=== PATIENT | male | born 1990 | race Caucasian/White ===

== ENCOUNTER 2016-10-24 02:48 | Emergency (ER) | payer OTHER ==
[~2016-10-24] VITALS: Ht 177.8 cm; Wt 56.8 kg
[2016-10-24 02:53] VITALS: TEMP 36.4; Ht 177.8 cm; Wt 56.8 kg
[2016-10-24 03:29] LABS: HEMATOCRIT 47.4 % (42-52); MEAN CELL VOLUME 88.1 fL (80-100); MEAN CORPUSCULAR HEMOGLOBIN 29.2 pg (25-34); MEAN CORPUSCULAR HGB CONC 33.1 g/dl (32-36); MEAN PLATELET VOLUME 11.3 fL (7.4-10.4); PLATELET COUNT 201 K/uL (130-400); RED BLOOD COUNT 5.38 M/uL (4.7-6.1); WHITE BLOOD COUNT 9.16 K/uL (4.8-10.8)
[2016-10-24 03:35] LABS: URINE APPEARANCE CLEAR (CLEAR); URINE BILIRUBIN NEG (NEG); URINE COLOR DK YELLOW; URINE NITRITE NEG (NEG); URINE SPECIFIC GRAVITY 1.031 (1.000-1.030); UROBILINOGEN NEG (NEG)
--- NOTE | 2016-10-24 03:36 | EMERGENCY ROOM VISIT NOTE ---
History Report prepared by Aileen: Rosa Elena Abdullahi Under the Supervision of: Dr. Zaida Olivares D.O. First contact with patient: 03:11 Chief Complaint: MENTAL HEALTH EVALUATION Stated Complaint: RACING THOUGHTS,SUICIDAL THOUGHTS History of Present Illness The patient is a 26 year old male who presents to the Emergency Room for a mental health evaluation. The patient states that he has a history of depression. He states that he has had a psychotic episode in the past that he attempted suicide by cutting his throat with a knife three years ago. He notes he has been an inpatient before in [place], but never [place]. The patient state that he had racing thoughts tonight and similar suicidal thoughts as his previous psychotic episode with the same plan. He states he came the ED to prevent this episode from becoming that severe. He states that he is on medication to help control his depression, but is inconsistent with it due to stress and an inconsistent schedule. The patient states he did take a Latuda before coming to the ED tonight with little relief. He notes he does see a psychiatrist regularly. The patient denies abdominal pain, leg cramping, leg swelling, drug use, alcohol use, and any other health problems. Source of History: patient Onset: tonight Position: other (global) Symptom Intensity: racing Quality: other (similar to previuos episodes) Timing: other (episode) Associated Symptoms: No abdominal pain Note: The patient denies leg cramping, leg swelling, drug use, alcohol use, and any other health problems Review of Systems See HPI for pertinent positives & negatives. A total of 10 systems reviewed and were otherwise negative. Past Medical & Surgical Medical Problems: (1) History of depression Family History No pertinent family history Social History Smoking Status: Never Smoker Alcohol Use: none Drug Use: none Marital Status: single Housing Status: lives alone Occupation Status: [employer] Current/Historical Medications Scheduled Lurasidone Hcl (Latuda), 80 MG PO HS Sertraline (Zoloft), 200 MG PO QAM Allergies Coded Allergies: No Known Allergies (Unverified , 10/24/16) Physical Exam Vital Signs Date Time Temp Pulse Resp B/P (MAP) Pulse Ox O2 Delivery O2 Flow Rate FiO2 10/24/16 07:01 64 18 128/67 95 Room Air 10/24/16 05:09 93 18 112/83 98 Room Air 10/24/16 02:53 36.4 78 18 153/103 99 Room Air Physical Exam HEENT: Head - normocephalic and atraumatic Pupils are equal, round, and reactive to light. Extraocular eye muscles are intact, and sclera are anicteric. Nose - moist nasal mucosa without discharge. Mouth - moist buccal mucosa. Oropharynx is nonerythematous and there is no tonsillar exudate or edema noted. Neck: Scar noted to the anterior neck. Supple; no cervical lymphadenopathy Heart: Regular rate and rhythm Lungs: Clear to auscultation bilaterally Abdomen: Soft, completely nontender, nondistended, with good bowel sounds. There are no palpable pulsatile masses or hepatosplenomegaly. There is no guarding, rigidity, or rebound noted. Extremities: No evidence of cyanosis, clubbing, or edema. There are easily palpable peripheral pulses. Skin: warm and dry with good turgor and no rashes. Psych: normal affect, admits to suicidal ideation with a plan to cut his neck. Medical Decision & Procedures Laboratory Results 10/24/16 03:16 10/24/16 03:16 Test 10/24/16 03:05 10/24/16 03:16 Urine Color DK YELLOW Urine Appearance CLEAR (CLEAR) Urine pH 6.0 (4.5-7.5) Urine Specific [place] 1.031 (1.000-1.030) Urine Protein NEG (NEG) Urine Glucose (UA) NEG (NEG) Urine Ketones 1+ (NEG) Urine Occult Blood NEG (NEG) Urine Nitrite NEG (NEG) Urine Bilirubin NEG (NEG) Urine Urobilinogen NEG (NEG) Urine Leukocyte Esterase NEG (NEG) Urine Opiates Screen NEG (NEG) Urine Methadone, Qualitative NEG (NEG) Urine Barbiturates NEG (NEG) Urine Phencyclidine (PCP) Level NEG (NEG) Ur Amphetamine/Methamphetamine NEG (NEG) MDMA (Ecstasy) Screen NEG (NEG) Urine Benzodiazepines Screen NEG (NEG) Urine Cocaine Metabolite NEG (NEG) Urine Marijuana (THC) NEG (NEG) Red Blood Count 5.38 M/uL (4.7-6.1) Mean Corpuscular Volume 88.1 fL (80-100) Mean Corpuscular Hemoglobin 29.2 pg (25-34) Mean Corpuscular Hemoglobin Concent 33.1 g/dl (32-36) RDW Standard Deviation 42.0 fL (36.4-46.3) RDW Coefficient of Variation 13.0 % (11.5-14.5) Mean Platelet Volume 11.3 fL (7.4-10.4) Anion Gap 9.0 mmol/L (3-11) Est Creatinine Clear Calc Drug Dose 92.4 ml/min Estimated GFR () 123.0 Estimated GFR (Non- 106.2 BUN/Creatinine Ratio 14.3 (10-20) Calcium Level 9.5 mg/dl (8.5-10.1) Total Bilirubin 0.6 mg/dl (0.2-1) Direct Bilirubin 0.1 mg/dl (0-0.2) Aspartate Amino Transf (AST/SGOT) 11 U/L (15-37) Alanine Aminotransferase (ALT/SGPT) 19 U/L (12-78) Alkaline Phosphatase 88 U/L (45-117) Total Protein 8.1 gm/dl (6.4-8.2) Albumin 4.8 gm/dl (3.4-5.0) Thyroid Stimulating Hormone (TSH) 6.230 uIu/ml (0.300-4.500) Salicylates Level < 1.7 mg/dl (2.8-20) Acetaminophen Level < 2 ug/ml (10-30) Ethyl Alcohol mg/dL < 3.0 mg/dl (0-3) Laboratory results per my review. Medications Administered Medications (Trade) Dose Ordered Sig/Bryan Route Start Time Stop Time Status Last Admin Dose Admin Sertraline HCl (Zoloft Tab) 200 mg NOW STAT PO 10/24/16 06:07 10/24/16 06:08 DC 10/24/16 07:00 200 MG ED Course 0317: Past medical records reviewed. The patient was evaluated in room A6. A complete history and physical exam was performed. Labs were drawn as above. 0506: The patient was felt to be medically cleared. [address] [facility] Staff are evaluating the patient currently. 0551: A bed search is being done for the patient. 0607: Ordered Zoloft Tab 200 mg PO. 0645: The patient will be signed out to Dr. Concepcion as the bed search continues. Medical Decision This is a 26-year-old male patient presents to the emergency department with racing thoughts and suicidal ideation with the plan. Differential diagnoses include mood disorder, medication noncompliance, suicidal ideation, thought disorder. LABS: Normal white count Normal H&H TSH 6.2 LFTS normal Glucose normal Renal function normal Negative alcohol Negative Tylenol Negative Aspirin Urine tox was negative Urinalysis had 1+ ketones The patient has a previous attempt at suicide by lacerating his neck. The patient presents here voluntarily requesting evaluation and inpatient psychiatric care. The patient admits to stopping his medications 2 days ago. He was noted to be hypothyroid. The case will be signed out to Dr. Concepcion at change of shift awaiting bed search. Impression Primary Impression: Suicidal ideation Additional Impressions: Noncompliance with medications Hypothyroidism Scribe Attestation The scribe's documentation has been prepared under my direction and personally reviewed by me in its entirety. I confirm that the note above accurately reflects all work, treatment, procedures, and medical decision making performed by me. Departure Information Dispostion Mental Health Acute Care Referrals No Doctor, Assigned (PCP) Patient Instructions My [facility] Problem Qualifiers
[2016-10-24 03:42] LABS: MANUAL MICROSCOPIC REQUIRED? NO; REVIEW REQ? NO
[2016-10-24] MEDS ORDERED: SERT-234 PO (03:46)
[2016-10-24] MEDS ORDERED: LURA80TA PO (03:46)
[2016-10-24 03:51] LABS: BUN/CREATININE RATIO 14.3 (10-20); CALCIUM 9.5 mg/dl (8.5-10.1); CREATININE 0.99 mg/dl (0.60-1.40); POTASSIUM 3.4 mmol/L (3.5-5.1)
[2016-10-24 03:53] LABS: BENZODIAZEPINE, URINE NEG (NEG); COCAINE,URINE NEG (NEG); PHENCYCLIDINE, URINE NEG (NEG)
[2016-10-24 04:02] LABS: THYROID STIMULATING HORMONE 6.23 uIu/ml (0.300-4.500)
[2016-10-24 04:16] LABS: ACETAMINOPHEN < 2 ug/ml (10-30)
[2016-10-24] MEDS ORDERED: SERTRALINE HCL 100 MG TAB PO STA (06:07)
[2016-10-24 09:50] VITALS: BP 132/55; PULSE 69; O2SAT 99
--- NOTE | 2016-10-24 15:06 | EMERGENCY ROOM VISIT NOTE ---
ED Visit Note First contact with patient: 06:39 26 yr old male arrived overnight for evaluation of worsening depression and suicidal plans. Initially evaluated and medically cleared by Dr Olivares. 201 voluntary admission planned. Accepted to [facility] and transferred there for further evaluation and treatment.
== END 2016-10-24 09:51 ==
LOC: C.EDB 02:50 → C.EDA 09:51
DX: R45.851 Suicidal ideations (principal); Z91.19 Patient's noncompliance with other medical treatment and regimen; F32.9 Major depressive disorder, single episode, unspecified; E03.9 Hypothyroidism, unspecified; Z91.5 Personal history of self-harm; Z79.899 Other long term (current) drug therapy

== ENCOUNTER 2018-10-23 13:51 | Inpatient (IN) ==
[2018-10-23 14:18] LABS: Appearance Urine Clear (Clear); Bilirubin Urine Negative (Negative); Blood Urine Negative (Negative); Color Urine Yellow; Glucose Urine UA Negative (Negative); Ketones Urine Negative (Negative); Leukocyte Esterase Urine Negative (Negative); Nitrite Urine Negative (Negative); Protein Urine Negative (Negative); Specific Gravity Urine 1.017 (1.000-1.030); Urobilinogen Urine Negative (Negative)
[2018-10-23 14:33] LABS: Hematocrit (blood only) 45.9 % (42-52); Hemoglobin 16.4 g/dL (14.0-18.0); Mean Corpuscular Hgb Conc 35.7 g/dL (32-36); Mean Corpuscular Volume 90.5 fL (80-100); Mean Platelet Volume 10.8 fL (7.4-10.4); Platelet Count 188 K/uL (130-400); RDW Coefficient of Variation 12.4 % (11.5-14.5); RDW Standard Deviation 40.9 fL (36.4-46.3); Red Blood Count 5.07 M/uL (4.7-6.1); White Blood Count 7.36 K/uL (4.8-10.8)
[2018-10-23 14:34] LABS: Eosinophils # (auto) 0.03 K/uL (0-0.5); Eosinophils % (auto) 0.4 %; Immature Granulocytes # (auto) 0.01 K/uL (0.00-0.02); Immature Granulocytes % (auto) 0.1 %; Lymphocytes # (auto) 1.23 K/uL (1.2-3.4); Lymphocytes % (auto) 16.7 %; Monocytes # (auto) 0.53 K/uL (0.11-0.59); Monocytes % (auto) 7.2 %; Neutrophils # (auto) 5.56 K/uL (1.4-6.5); Neutrophils % (auto) 75.6 %
[2018-10-23 14:38] LABS: Amphetamines+Metham, Urine Neg (Neg); Barbiturates, Urine Neg (Neg); Benzodiazepine, Urine Neg (Neg); Cocaine, Urine Neg (Neg); MDMA (Ecstacy), Urine Neg (Neg); Methadone, Urine Neg (Neg); Opiate, Urine Neg (Neg); Phencyclidine, Urine Neg (Neg)
[2018-10-23 14:51] LABS: Albumin Level 4.5 gm/dl (3.4-5.0); BUN Creatinine Ratio 11.8 (10-20); Calcium 9.3 mg/dl (8.5-10.1); Creatinine Clr Calc Pharmacy 91.9 ml/min; Potassium 4.1 mmol/L (3.5-5.1)
[2018-10-23 15:00] LABS: Acetaminophen < 2 ug/ml (10-30); Salicylate < 1.7 mg/dl (2.8-20)
[2018-10-23 15:01] LABS: Albumin Globulin Ratio 1.3 (0.9-2); Bilirubin,Total 0.5 mg/dl (0.2-1); Globulin 3.4 gm/dl (2.5-4.0); Total Protein 7.9 gm/dl (6.4-8.2)
--- NOTE | 2018-10-23 16:22 | Emergency Department Note ---
Entered by Nikki Morelos acting as a scribe for History of Present Illness General Chief complaint: Mental Health Evaluation Stated complaint: DEPRESSION, SUICIDAL THOUGHTS Source: patient History of Present Illness Onset (ago): week(s) (couple) Location: head Pain Consistency: + other (episode) Maximum Pain Intensity: 0 Quality: + other (suicidal thoughts, depression) Associated symptoms: + other (-pain; +lethargy; +stress; -urges/impulses; - hallucinations; -wanting to hurt others); no fever/chills and no nausea/vomiting The patient is a 28 year old male who presents to the Emergency Room with complaints of an episode of suicidal thoughts over the last couple weeks. The patient reports he saw a psychiatrist today who referred him to the ED. The patient notes he has bipolar disorder, and he notes he has experienced increased depression and hypomanic episodes recently, which has caused an increase of his Zoloft dosage. The patient also notes he has been on Latuda. The patient states that he "does not want to , but does not feel like living anymore". The patient states he has been stressed recently due to work and school. The patient also states he generally has not been able to get up in the mornings, and he states that he does not want to eat. The patient reports he has been sleeping more than baseline, recently. The patient notes he sees a therapist, Didier Lawson, every week. The patient reports he lives in [place] for school with three roommates, and he notes his family is in [place]. The patient denies urges, impulses, hallucinations, or wanting to hurt others. The patient also denies pain, fever, or nausea. The patient reports no allergies or other medical problems. Home Medications Home Medications Medication Instructions Recorded Confirmed Type lurasidone [Latuda] 60 mg PO 1700 #0 tab 10/24/16 10/23/18 History sertraline [Zoloft] 200 mg PO QAM #0 tab 10/24/16 10/23/18 History lorazepam [Ativan] 0.5 mg PO TID PRN 10/23/18 10/23/18 History Allergies Allergy/AdvReac Type Severity Reaction Status Date / Time No Known Allergies Allergy Verified 10/23/18 14:31 Past Med/Surg History Medical History Bipolar 1 disorder Depression Family History Other No significant family history Social History Preferred Language: Sri [place]an Feels Safe at Home: Yes Smoking Status: Never smoker Review of Systems See HPI for pertinent positives & negatives. and A total of 10 systems reviewed and were otherwise negative Physical Exam Vital Signs Vital Signs - 24 hr 10/23/18 13:52 10/23/18 15:02 10/23/18 16:51 Temperature 36.9 C 36.5 C Temperature Source Oral Oral Sepsis Recent Fever Within 48 Hours No Sepsis New/Unexplained Change in Mental Status No Sepsis Action Taken by Nursing No Action Required Pulse Rate 70 Pulse Rate [Finger] 64 64 Pulse Rhythm [Finger] Regular Pulse Strength [Finger] Normal Respiratory Rate 16 14 16 Respiratory Effort / Characteristics Non-Labored Non-Labored Spontaneous Non-Labored Spontaneous Respiratory Depth Normal Normal Normal Respiratory Pattern Regular Regular Blood Pressure 121/88 Blood Pressure [Right Arm] 110/72 134/78 Blood Pressure Mean 99 Blood Pressure Mean [Right Arm] 84 96 Blood Pressure Position Sitting Pulse Oximetry 97 98 98 Oxygen Delivery Method Room Air Room Air Room Air GENERAL: Awake, alert, in no distress HENT: Normocephalic, atraumatic. EYES: Normal conjunctiva. Sclera non-icteric. NECK: Supple. No nuchal rigidity. RESPIRATORY: Clear to auscultation. No wheezes. Normal respiratory effort. CARDIAC: Normal rate. Normal rhythm. Extremities warm and well perfused. GI: Soft, non-distended. No tenderness to palpation. RECTAL: Deferred. MUSCULOSKELETAL: Atraumatic. Chest examination reveals no tenderness. NEURO: Normal sensorium. No sensory or motor deficits noted. No facial droop. SKIN: Warm and dry. No rash or jaundice noted. PSYCH: Endorses passive SI. Denies HI and hallucinations. Flat affect. Course 1414: Past medical records reviewed. The patient was evaluated in room A6. A complete history and physical exam was performed. 1612: The patient was referred to [facility] for further evaluation. Medical Decision Making Differential Diagnosis Differential diagnosis: Etiologies such as mood disorder, infection, hypoglycemia, electrolyte abnormalities, cardiac sources, intracerebral event, toxicologic, neurologic, as well as others were entertained. Medical Records Attestation: I reviewed the patient's medical records. Home Medications Current Medication List: was personally reviewed by me Laboratory Data Attestation: I reviewed the patient's lab results. Result diagrams: 10/23/18 14:22 10/23/18 14:22 Lab Results 10/23/18 10/23/18 10/23/18 Range/Units 14:08 14:08 14:22 WBC 7.36 (4.8-10.8) K/uL RBC 5.07 (4.7-6.1) M/uL Hgb 16.4 (14.0-18.0) g/dL Hct 45.9 (42-52) % MCV 90.5 (80-100) fL MCH 32.3 (25-34) pg MCHC 35.7 (32-36) g/dL RDW Std Deviation 40.9 (36.4-46.3) fL RDW Coeff of Symone 12.4 (11.5-14.5) % Plt Count 188 (130-400) K/uL MPV 10.8 H (7.4-10.4) fL Immature Gran % (Auto) 0.1 % Neut % (Auto) 75.6 % Lymph % (Auto) 16.7 % [place] % (Auto) 7.2 % Eos % (Auto) 0.4 % Baso % (Auto) 0.0 % Immature Gran # (Auto) 0.01 (0.00-0.02) K/uL Neut # (Auto) 5.56 (1.4-6.5) K/uL Lymph # (Auto) 1.23 (1.2-3.4) K/uL [place] # (Auto) 0.53 (0.11-0.59) K/uL Eos # (Auto) 0.03 (0-0.5) K/uL Baso # (Auto) 0.00 (0-0.2) K/uL Sodium (136-145) mmol/L Potassium (3.5-5.1) mmol/L Chloride (98-107) mmol/L Carbon Dioxide (21-32) mmol/L Anion Gap (3-11) BUN (7-18) mg/dl Creatinine (0.6-1.4) mg/dl Est Cr Clr Drug Dosing ml/min Est GFR ( Amer) Est GFR (Non-Af Amer) BUN/Creatinine Ratio (10-20) Glucose (70-99) mg/dl Calcium (8.5-10.1) mg/dl Total Bilirubin (0.2-1) mg/dl AST (15-37) U/L ALT (12-78) U/L Alkaline Phosphatase (45-117) U/L Total Protein (6.4-8.2) gm/dl Albumin (3.4-5.0) gm/dl Globulin (2.5-4.0) gm/dl Albumin/Globulin Ratio (0.9-2) TSH (0.300-4.500) uIu/ml Urine Color Yellow Urine Appearance Clear (Clear) Urine pH 8.0 H (4.5-7.5) Ur Specific [place] 1.017 (1.000-1.030) Urine Protein Negative (Negative) Urine Glucose (UA) Negative (Negative) Urine Ketones Negative (Negative) Urine Blood Negative (Negative) Urine Nitrite Negative (Negative) Urine Bilirubin Negative (Negative) Urine Urobilinogen Negative (Negative) Ur Leukocyte Esterase Negative (Negative) Salicylates (2.8-20) mg/dl Urine Opiates Screen Neg (Neg) Ur Methadone, Qual Neg (Neg) Acetaminophen (10-30) ug/ml Urine Barbiturates Neg (Neg) Ur Phencyclidine (PCP) Neg (Neg) U Amphetamin/Meth Scrn Neg (Neg) MDMA (Ecstasy) Screen Neg (Neg) U Benzodiazepines Scrn Neg (Neg) Ur Cocaine Metabolite Neg (Neg) U Marijuana (THC) Screen Neg (Neg) Ethyl Alcohol mg/dL (0-3) mg/dl 10/23/18 10/23/18 10/23/18 Range/Units 14:22 14:22 14:22 WBC (4.8-10.8) K/uL RBC (4.7-6.1) M/uL Hgb (14.0-18.0) g/dL Hct (42-52) % MCV (80-100) fL MCH (25-34) pg MCHC (32-36) g/dL RDW Std Deviation (36.4-46.3) fL RDW Coeff of Symone (11.5-14.5) % Plt Count (130-400) K/uL MPV (7.4-10.4) fL Immature Gran % (Auto) % Neut % (Auto) % Lymph % (Auto) % [place] % (Auto) % Eos % (Auto) % Baso % (Auto) % Immature Gran # (Auto) (0.00-0.02) K/uL Neut # (Auto) (1.4-6.5) K/uL Lymph # (Auto) (1.2-3.4) K/uL [place] # (Auto) (0.11-0.59) K/uL Eos # (Auto) (0-0.5) K/uL Baso # (Auto) (0-0.2) K/uL Sodium 138 (136-145) mmol/L Potassium 4.1 (3.5-5.1) mmol/L Chloride 105 (98-107) mmol/L Carbon Dioxide 26 (21-32) mmol/L Anion Gap 7.0 (3-11) BUN 12 (7-18) mg/dl Creatinine 1.02 (0.6-1.4) mg/dl Est Cr Clr Drug Dosing 91.9 ml/min Est GFR ( Amer) 117.0 Est GFR (Non-Af Amer) 101.0 BUN/Creatinine Ratio 11.8 (10-20) Glucose 87 (70-99) mg/dl Calcium 9.3 (8.5-10.1) mg/dl Total Bilirubin 0.5 (0.2-1) mg/dl AST 9 L (15-37) U/L ALT 17 (12-78) U/L Alkaline Phosphatase 68 (45-117) U/L Total Protein 7.9 (6.4-8.2) gm/dl Albumin 4.5 (3.4-5.0) gm/dl Globulin 3.4 (2.5-4.0) gm/dl Albumin/Globulin Ratio 1.3 (0.9-2) TSH 1.690 (0.300-4.500) uIu/ml Urine Color Urine Appearance (Clear) Urine pH (4.5-7.5) Ur Specific [place] (1.000-1.030) Urine Protein (Negative) Urine Glucose (UA) (Negative) Urine Ketones (Negative) Urine Blood (Negative) Urine Nitrite (Negative) Urine Bilirubin (Negative) Urine Urobilinogen (Negative) Ur Leukocyte Esterase (Negative) Salicylates < 1.7 L (2.8-20) mg/dl Urine Opiates Screen (Neg) Ur Methadone, Qual (Neg) Acetaminophen < 2 L (10-30) ug/ml Urine Barbiturates (Neg) Ur Phencyclidine (PCP) (Neg) U Amphetamin/Meth Scrn (Neg) MDMA (Ecstasy) Screen (Neg) U Benzodiazepines Scrn (Neg) Ur Cocaine Metabolite (Neg) U Marijuana (THC) Screen (Neg) Ethyl Alcohol mg/dL < 3.0 (0-3) mg/dl Blood Pressure Blood Pressure Findings: Normal blood pressure MDM Narrative Patient is a 28-year-old gentleman history of bipolar on Zoloft and Latuda presenting from a psychiatrist office today for evaluation of increasing depression, hypomania, and some passive suicidal thoughts. Patient denies attempts or clear plan at this time. Denies any HI or hallucinations. No drug or alcohol usage issues related. Patient seems somewhat flat affect and wishes for inpatient treatment. Second case reviewer assist with evaluation. Medical clearance was completed. No involuntary grounds exist. Patient does have prior suicide attempt. Patient wished for possible voluntary inpatient treatment referrals to [facility] were [facility]. Patient was accepted there under voluntary commitment for further care. Impression & Plan Suicidal thoughts, Depression Discharge Plan Visit Data *Final* Discharge Date/Time: 10/23/18 17:17 Chief Complaint: Mental Health Evaluation Stated Complaint: DEPRESSION, SUICIDAL THOUGHTS ED Provider: Blaze Quiroz Discharge Problem: Suicidal thoughts, Depression Patient Disposition: Admitted As Inpatient Discharge Instructions Interventions: ED Discharge Assessment Last Done: 10/23/18 17:17 Discharge Problem: Depression Qualifiers: Depression Type: major depressive disorder Major depression recurrence: recurrent Active/Remission status: currently active Major depression episode severity: unspecified Qualified Code(s): F33.9 - Major depressive disorder, recurrent, unspecified The bennett's documentation has been prepared under my direction and personally reviewed by me in its entirety. I confirm that the note above accurately reflects all work, treatment, procedures, and medical decision making performed by me.
[2018-10-23] MEDS ORDERED: SODIUM CHLORIDE 0.65% NA SOLN 45 ML (OCEAN) PRN (16:45)
[2018-10-23] MEDS ORDERED: ALUMINUM/MAGNESIUM SUSP 30 ML UDC PO PRN (16:45)
[2018-10-23] MEDS ORDERED: ACETAMINOPHEN 325 MG TAB PO PRN (16:45)
[2018-10-23] MEDS ORDERED: MAGNESIUM HYDROXIDE SUSP 30 ML UDC PO PRN (16:45)
[2018-10-23] MEDS ORDERED: BISMUTH SUBSALICYLATE PER ML OMNICELL CHARGE PO PRN (16:45)
[2018-10-23] MEDS ORDERED: LORazepam 0.5 MG TAB PO PRN (18:09)
[2018-10-23] MEDS: LURASIDONE HCL 40 MG TAB PO SCH ×2 (21:04)
[2018-10-23] MEDS ORDERED: LORazepam 0.5 MG TAB PO SCH (22:00)
[2018-10-24] MEDS ORDERED: SERTRALINE HCL 100 MG TABLET PO SCH ×2 (09:00)
[2018-10-24] MEDS ORDERED: LORazepam 0.5 MG TAB PO SCH (09:00)
--- NOTE | 2018-10-24 11:57 | History & Physical ---
Date of Service October 24, 2018 Impression / Recommendations Impression This 28-year-old man presents for what he tells us is his fourth psychiatric hospitalization. He gives a history of the onset of bipolar disorder approximately 5 or 6 years ago. He reports that, in retrospect, he feels that his initial psychiatric episode was a mild to moderate depression that preceded what he refers to as a "full-blown manic episode" that occurred while he was traveling in [place]. When depressed, the patient notes that he does not usually have any difficulty sleeping, but does experience depressed mood, frequent crying spells, ruminative thoughts, anergia, apathy, anhedonia, feelings of h opelessness and helplessness, feelings of inadequacy, recurrent thoughts of and dying (often passive), psychosocial withdrawal, difficulty concentrating, and anxiety. While there is no clear precipitating psychosocial stressor identified disease other than, possibly, the patient has become somewhat distant tampered of his chosen future career) in the context of the onset of the depression is that the patient's outpatient psychiatrist reportedly had noticed emerging evidence of hypomania and, in response, had tapered the patient's dose of sertraline to a dose of 50 mg a day and then to a dose of 25 mg a day. The patient's hypomanic symptoms resolved, but the patient quickly began to show evidence of depression and so his outpatient psychiatrist titrated the dose of sertraline, first to 50 mg a day and, 1 week prior to the admission, to a dose of 100 mg a day. The outpatient psychiatrist recommendation is that the dose of sertraline be increased from 100 mg a day to a dose of 150 mg a day and that the dose of lurasidone, which had been 60 mg a day in the community, be increased to a dose of 80 mg a day. The patient notes that he has experienced excess sedation at 80 mg a day of lurasidone. He also says that he is experienced "akathisia" [his word] at higher doses of lurasidone. I checked him today in my office and there was no cogwheel rigidity in evidence. However, the patient does report that he often feels "jumpy" and "restless," although he says that this is not the case all the time. Today, rather than increase the dose of lurasidone and the dose of sertraline simultaneously, I will increase the dose sertraline to a dose of 150 mg a day, and we will continue lurasidone 60 mg a day and titrate as indicated. I will also add Artane 5 mg a day for possible akathisia. I advised the patient that although I understand that it is his and isolate, part of the treatment here will involve him being as active as he possibly can and he is advised, as a therapeutic intervention, to participate as actively as he can in groups and in individual treatments. He also tells me that he expects his parents to come to [place] towards the end of the next week, and if he is still in the hospital a family intervention may be indicated. (1) Suicidal thoughts: 10/24/18 -The patient reports frequent thoughts of suicide during episodes of depression. He has a history of a very serious suicide attempt that reportedly occurred about 5 years ago in which he cut his neck repeatedly with a sharp object and attempted to jump through a closed window (unsuccessfully). The patient's thoughts of suicide currently have included thoughts of, again, jumping through a window, or banging his head against a hard object. The p atient indicates that these thoughts are not associated with a specific plan or intent. However, he clearly says that he wishes that he could simply "be " and wishes that he could "go to sleep and never wake up." Present on Admission?: Yes (2) Depression: 10/24 -The patient tells us that his current episode of depression is "definitely the worst" depression that he is ever experienced. Although he reports that his suicidal thoughts consist primarily of passive thoughts of without active suicidal plan or intent, he does have a history of having made at least one very serious suicide attempt under similar circumstances. 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 Bipolar depression can be difficult to treat, in part because of the risk of inducing ma ganga. As noted above, the patient's outpatient psychiatrist reportedly had been tapering his antidepressant medication (sertraline) because the patient had been exhibiting some evidence of hypomania. However, it appears that the patient's hypomania rapidly switched to depression during the sertraline taper, and his dose of sertraline was increased back to 100 mg a day. The plan will be to increase his dose of sertraline to a dose of 150 mg a day. The outpatient psychiatrist advised had been to increase the dose of Latuda (lurasidone) from the current 60 mg a day to a dose of 80 mg a day. Because of the patient's report that he experiences excess sedation at 80 mg (daytime sedation of taken at bedtime (and because he reports that his feelings of jumpiness and restlessness) may worsen at 80 mg, we will hold off increasing lurasidone for the time being. Although the patient does not exhibit cogwheel rigidity on testing today, I will add Artane 5 mg daily because of the patient's report of symptoms consistent with akathisia. We are encouraging the patient to be active in the milieu, to participate as actively as he can in individual and group therapies, avoid retreating to his room, and seeing interactions, even if they are not consistent with his personal wishes, as part of the treatment for depression. Also, the patient expresses certain concerns about his family of origin, and he tells us that this is a frequent source of rumination. It may be useful, once the patient's mood has improved somewhat, to explore this further. Also, family interventions would be recommended, if possible. Active/Remission status: currently active Depression Type: major depressive disorder Major depression episode severity: unspecified Major depression recurrence: recurrent Qualified Code(s): F33.9 - Major depressive disorder, recurrent, unspecified Protective Factors Assessment Employed: No Psychiatric History Identifying Data MARLENE MCLEAN is a 28-year-old M who currently lives in [place] with several roommates. He has a history of bipolar disorder and was admitted on 10/23/18 17:20 on a 201 voluntary agreement because of suicidal thoughts, with a past history of a serious suicide attempt. Chief Complaint "Depressed." History of Present Illness The patient is a 28-year-old man with a known diagnosis of bipolar disorder. He reports that, to the best of his knowledge, he is only had a single manic episode. That episode occurred in 2012 while the patient was traveling in [place]. He notes that he feels that prior to leaving on the trip for [place] he had been feeling depressed, but was not necessarily aware of that fact. In [place], he began to feel as if he was "ready to take over the world," and also imagined that he had "great leon, and a limitless future." Within that context, he also began to believe that persons that he was encountering in [place] were plotting to sabotage him and, perhaps, to cause him physical harm in order to keep him from fulfilling the success that he imagined that he was destined to have. He also reports that, at the time, he had flight of ideas and pressured speech, combined with decreased desire for sleep, increased energy, an d a combination of elated and expansive moods. Upon his return to the [facility], the patient made a serious suicide attempt by cutting his own throat multiple times with a sharp object (scars are apparent) and attempting to jump through a glass window before being subdued by his father who had been in the next room, asleep. Subsequent to that, the patient has had several episodes of depression. He also notes that he has become what he refers to as "hypomanic" when not fully adherent with his medications, particularly with Latuda. He adds, "I know what is going to happen if I stop Latuda, at this point, so I do not." He indicates that for the past several months he has been feeling "somewhat depressed" and "may be a little lonely." However, during the 1 or 2 weeks prior to the admission the patient became aware that his depression was becoming much worse. He began having thoughts of suicide. These included thoughts of banging his head on the floor or a solid object, such as a hard wall, or by jumping through a windowalthough he notes that these thoughts were not necessarily associated with any actual plan or intent. At the same time, the patient indicates that he was neglecting self-care, not leaving the home, not eating properly, not attending to daily ablutions, and not going to work. 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 The patient acknowledges that his advisor told him that he, the advisor, feels that the patient already has enough data to allow him to successfully write and submit a thesis, but the patient insists that he is not equal to the task of completing his masters degree-even though he has a decent academic average (apart from a failed course that was not part of his major and that can probably be retroactively dropped). 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 The patient does not identify any specific stressor, although he does note ongoing problems in his family of origin. He has a younger sister who has advanced kidney disease and has undergone 2 kidney transplants. He also reports that, perhaps as a function of the stress associated with the sister's illness, his parents marriage has been troubled and, according the patient, is characterized by "frequent fighting" that he witnessed throughout his childhood. Of note is the fact that his outpatient psychiatrist records indicate that there had been a concern that the patient was becoming somewhat hypomanic, and so the patient's outpatient dose of sertraline was decreased from 100 mg daily to a dose of 50 mg daily, and then decreased again to a dose of 25 mg daily. When it was recognized that the patient's depression was worsening, the outpatient psychiatrist increased his dose of sertraline back to 50 mg a day and, in the week prior to the admission the dose was increased back to 100 mg daily. The patient's patient tells us that his highest dose of Latuda was 80 mg a day. He is currently taking 60 mg a day. He notes that at 80 mg a day he has experienced excess daytime sedation (dose taken at bedtime). He also used the word "akathisia" to describe a certain jumpiness that he has experienced at higher doses of Latuda. On physical examination on the behavioral health unit the patient was not found to have cogwheel rigidity, but he does note that he is currently having difficulty "sitting still" at least periodically. Past Psychiatric History Previous Psych History: The patient reports that he has been in psychiatric treatment since 2012. He believes that his illness began with a mild depression that occurred in 2012. This depression was immediately followed by with the patient refers to as his "only full-blown manic episode." The manic episode occurred in 2012 while the patient was traveling abroad, and upon returning to the he made a serious suicide attempt by cutting his neck and attempting to jump through a window. He has had at least 3 previous psychiatric hospitalizations. He also has been consistently in outpatient treatment, both of the psychiatrist and with a psychotherapist. He sees his therapist weekly and his psychiatrist, usually, once a month. The patient's report is that he feels that he is more likely to have depression than sabra, but he also notes that when doses of Latuda have been decreased in the past (or discontinued) he has begun to experience mild sabra that he refers to as "hypomania." Current Psychiatric Diagnosis: Bipolar Disorder Previous Psych Admissions: Currently in outpatient treatment with a psychiatrist and a therapist. Had 3 previous psychiatric hospitalizations. The first 2 psychiatric hospitalizations occurred in his home state, [place]. The most recent previous psychiatric hospitalization was at the [facility]. History of Previous Suicide Attempt: Yes (The patient reported that he cut his throat and attempted to jump out a closed window in 2013.) Describe Attempts in the Past: Cut his throat in 2013 Past Head Trauma/Neuro History History of Concussion/Seizure: No Allergies Allergy/AdvReac Type Severity Reaction Status Date / Time No Known Allergies Allergy Verified 10/23/18 14:31 Home Medications Home Medications Medication Instructions Recorded Confirmed Type lurasidone [Latuda] 60 mg PO 1700 #0 tab 10/24/16 10/23/18 History sertraline [Zoloft] 100 mg PO QAM #0 tab 10/24/16 10/24/18 History lorazepam [Ativan] 0.5 mg PO TID PRN 10/23/18 10/23/18 History Family History Family History of: None Alcohol History Hx of Alcohol Use Over the Past 12 Months: No AUDIT Total Score: 0 Smoking Use Have You Smoked or Used Tobacco Products in the Last 30 Days: No Smoking Status: Never smoker Substance History Hx of Prescription Med Misuse Over the Past 12 Months: No Hx of Over the Counter Med Misuse Over the Past 12 Months: No Hx of Inhalent Misuse Over the Past 12 Months: No Hx of Organic Substance Use Over the Past 12 Months: No Hx of Illegal Substances/Street Drug Use Over Past 12 Months: No Personal History Living Arrangements: Apartment Living Arrangements Comments: Patient reports that he lives with several roommates. He notes that although he and his roommates are not particularly close, they are friendly and sometimes socialize together. Born In: [place] Childhood: The patient reports that he was somewhat withdrawn and isolative during childhood. A circumstance that significantly impacted upon the patient during childhood was the fact that his younger sister was diagnosed with renal failure at the age of 4. The sister required a great deal of medical attention, and has subsequently had to kidney transplants. The patient reports that he believes that the stress of his sister's illness adversely impacted upon his parents marriage, and he remembers his parents frequently arguing throughout much of his childhood. 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. He has an undergraduate degree from the [employer]. 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 Marital Status: Single Beliefs That Will Affect Care: None (The patient says that he does not believe in God, but has a strong cultural affinity to Taoist and was bar mitzvahed at the usual age.) Current Legal Problems: No Hx Legal Problems: No Hx Traumatic Life Events: No Patient History Medical History Bipolar 1 disorder Depression Family History Other No significant family history Social History Preferred Language: Lithuanian Communication Ability: Effective Beliefs That Will Affect Care: None Feels Safe at Home: Yes Smoking Status: Never smoker Review of Systems Review of Systems: All systems reviewed & are unremarkable except as noted in HPI & below The somatic history, review of systems and physical examination completed by Blaze Quiroz MD in the ED have been reviewed and are accepted as medical clearance to the Behavioral Health Unit. Physical Exam Psychiatric: Orientation: oriented x 3 Apperance: + disheveled Eye Contact: + poor eye contact Motor Behavior: no abnormal motor movements and + psychomotor retardation Soft, slow, and with frequent response delays. Affect: + depressed affect and + tearful affect Mood: + depressed mood and + anxious mood Thought Process: goal directed thought process and + circumstantial thought process Thought Content: reality based without delusions Reports suicidal thoughts, such as a thought of jumping out a window. Without intent to act on these in the hospital and agrees to notify staff if intent develops. Homicidal Thoughts: denies homicidal thoughts Hallucinations: no auditory hallucinations and no visual hallucinations Cognition: recent memory grossly intact, remote memory grossly intact, attention grossly intact and language grossly intact Estimated Intelligence: + above average estimated intelligence Insight: good insight Judgement: + impaired judgement (Patient is close to finishing his master's degree, is getting positive feedback from his advisor, has a decent academic average, but wants to quit "because [he] cannot do it.") Vital Signs (Past 24 Hours): Last Vital Signs Temp 36.5 C 10/24/18 06:49 Pulse 67 10/24/18 06:49 Resp 18 10/24/18 06:49 BP 121/79 10/24/18 06:49 Pulse Ox 98 10/23/18 18:42 Results & Data Laboratory Results Laboratory Results - last 24 hr 10/23/18 10/23/18 10/23/18 14:08 14:08 14:22 WBC 7.36 RBC 5.07 Hgb 16.4 Hct 45.9 MCV 90.5 MCH 32.3 MCHC 35.7 RDW Std Deviation 40.9 RDW Coeff of Symone 12.4 Plt Count 188 MPV 10.8 H Immature Gran % (Auto) 0.1 Neut % (Auto) 75.6 Lymph % (Auto) 16.7 Cuming % (Auto) 7.2 Eos % (Auto) 0.4 Baso % (Auto) 0.0 Immature Gran # (Auto) 0.01 Neut # (Auto) 5.56 Lymph # (Auto) 1.23 Cuming # (Auto) 0.53 Eos # (Auto) 0.03 Baso # (Auto) 0.00 Sodium Potassium Chloride Carbon Dioxide Anion Gap BUN Creatinine Est Cr Clr Drug Dosing Est GFR ( Amer) Est GFR (Non-Af Amer) BUN/Creatinine Ratio Glucose Calcium Total Bilirubin AST ALT Alkaline Phosphatase Total Protein Albumin Globulin Albumin/Globulin Ratio TSH Urine Color Yellow Urine Appearance Clear Urine pH 8.0 H Ur Specific [place] 1.017 Urine Protein Negative Urine Glucose (UA) Negative Urine Ketones Negative Urine Blood Negative Urine Nitrite Negative Urine Bilirubin Negative Urine Urobilinogen Negative Ur Leukocyte Esterase Negative Salicylates Urine Opiates Screen Neg Ur Methadone, Qual Neg Acetaminophen Urine Barbiturates Neg Ur Phencyclidine (PCP) Neg U Amphetamin/Meth Scrn Neg MDMA (Ecstasy) Screen Neg U Benzodiazepines Scrn Neg Ur Cocaine Metabolite Neg U Marijuana (THC) Screen Neg Ethyl Alcohol mg/dL 10/23/18 10/23/18 10/23/18 14:22 14:22 14:22 WBC RBC Hgb Hct MCV MCH MCHC RDW Std Deviation RDW Coeff of Symone Plt Count MPV Immature Gran % (Auto) Neut % (Auto) Lymph % (Auto) Cuming % (Auto) Eos % (Auto) Baso % (Auto) Immature Gran # (Auto) Neut # (Auto) Lymph # (Auto) Cuming # (Auto) Eos # (Auto) Baso # (Auto) Sodium 138 Potassium 4.1 Chloride 105 Carbon Dioxide 26 Anion Gap 7.0 BUN 12 Creatinine 1.02 Est Cr Clr Drug Dosing 91.9 Est GFR ( Amer) 117.0 Est GFR (Non-Af Amer) 101.0 BUN/Creatinine Ratio 11.8 Glucose 87 Calcium 9.3 Total Bilirubin 0.5 AST 9 L ALT 17 Alkaline Phosphatase 68 Total Protein 7.9 Albumin 4.5 Globulin 3.4 Albumin/Globulin Ratio 1.3 TSH 1.690 Urine Color Urine Appearance Urine pH Ur Specific [place] Urine Protein Urine Glucose (UA) Urine Ketones Urine Blood Urine Nitrite Urine Bilirubin Urine Urobilinogen Ur Leukocyte Esterase Salicylates < 1.7 L Urine Opiates Screen Ur Methadone, Qual Acetaminophen < 2 L Urine Barbiturates Ur Phencyclidine (PCP) U Amphetamin/Meth Scrn MDMA (Ecstasy) Screen U Benzodiazepines Scrn Ur Cocaine Metabolite U Marijuana (THC) Screen Ethyl Alcohol mg/dL < 3.0 Current Inpatient Medications Current Inpatient Medications: Current Inpatient Medications Acetaminophen (Tylenol) 650 mg PO Q4H PRN PRN Reason: Headache or Minor Fever Stop: 11/22/18 16:44 Al Hydrox/Mg Hydrox/Simethicone (Maalox) 30 ml PO Q4H PRN PRN Reason: GI Upset Stop: 11/22/18 16:44 Bismuth Subsalicylate (Kaopectate) 15 ml PO PRN PRN PRN Reason: Loose Stool Stop: 11/22/18 16:44 Hydroxyzine HCl (Vistaril) 25 mg PO Q4H PRN PRN Reason: Anxiety Stop: 11/22/18 16:44 Hydroxyzine HCl (Vistaril) 50 mg PO HSZ PRN PRN Reason: Insomnia Stop: 11/22/18 16:44 Lorazepam (Ativan) 0.5 mg PO TID PRN PRN Reason: Anxiety Stop: 11/22/18 18:08 Lurasidone HCl (Latuda) 60 mg PO QDD MAGDA Stop: 11/22/18 16:59 Last Admin: 10/23/18 21:04 Dose: 60 mg Documented by: Magnesium Hydroxide (Milk Of Magnesia) 30 ml PO DAILY PRN PRN Reason: Heartburn Stop: 11/22/18 16:44 Sertraline HCl (Zoloft) 150 mg PO QAM MAGDA Stop: 11/23/18 11:29 Sodium Chloride (Wood Nasal) 1 - 2 sprays NA PRN PRN PRN Reason: Nasal Dryness/Congestion Stop: 11/22/18 16:44 CPT Code CPT Code Initial Hospital Care: [id number]
[2018-10-24] MEDS ORDERED: TRIHEXYPHENIDYL HCL 5 MG TAB PO SCH (12:45)
[2018-10-24] MEDS: SERTRALINE HCL 100 MG TABLET PO SCH (12:51)
[2018-10-24] MEDS: LURASIDONE HCL 40 MG TAB PO SCH (22:15)
[2018-10-25] MEDS: TRIHEXYPHENIDYL HCL 2 MG TAB PO SCH (09:21)
[2018-10-25] MEDS: SERTRALINE HCL 100 MG TABLET PO SCH (09:21)
--- NOTE | 2018-10-25 12:40 | Psychiatric Progress Note ---
Date of Service October 25, 2018 Impression / Recommendations Impression This 28-year-old man presents for possibly his 4th psychiatric hospitalization. He gives a history of the onset of bipolar disorder approximately 5 or 6 years ago and on admission he described one manic episode while he was traveling in [place]. His depressive symptoms worsened when outpatient psychiatrist decreased his Zoloft due to hypomania. Today he reports improved mood which he attributes to higher dose of Zoloft and denies any internal restlessness following addition of Artane. (1) Suicidal thoughts: 10/24/18 -The patient reports frequent thoughts of suicide during episodes of depression. He has a history of a very serious suicide attempt that reportedly occurred about 5 years ago in which he cut his neck repeatedly with a sharp object and attempted to jump through a closed window (unsuccessfully). The patient's thoughts of suicide currently have included thoughts of, again, jumping through a window, or banging his head against a hard object. The patient indicates that these thoughts are not associated with a specific plan or intent. However, he clearly says that he wishes that he could simply "be " and wishes that he could "go to sleep and never wake up." (2) Depression: 10/24 -The patient tells us that his current episode of depression is "definitely the worst" depression that he is ever experienced. Although he reports that his suicidal thoughts consist primarily of passive thoughts of without active suicidal plan or intent, he does have a history of having made at least one very serious suicide attempt under similar circumstances. 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 Bipolar depression can be difficult to treat, in part because of the risk of inducing sabra. As noted above, the patient's outpatient psychiatrist reportedly had been tapering his antidepressant medication (sertraline) because the patient had been exhibiting some evidence of hypomania. However, it appears that the patient's hypomania rapidly switched to depression during the sertraline taper, and his dose of sertraline was increased back to 100 mg a day. The plan will be to increase his dose of sertraline to a dose of 150 mg a day. The outpatient psychiatrist advised had been to increase the dose of Latuda (lurasidone) from the current 60 mg a day to a dose of 80 mg a day. Because of the patient's report that he experiences excess sedation at 80 mg (daytime sedation of taken at bedtime (and because he reports that his feelings of jumpiness and restlessness) may worsen at 80 mg, we will hold off increasing lurasidone for the time being. Although the patient does not exhibit cogwheel rigidity on testing today, I will add Artane 5 mg daily because of the patient's report of symptoms consistent with akathisia. We are encouraging the patient to be active in the milieu, to participate as actively as he can in individual and group therapies, avoid retreating to his room, and seeing interactions, even if they are not consistent with his personal wishes, as part of the treatment for depression. Also, the patient expresses certain concerns about his family of origin, and he tells us that this is a frequent source of rumination. It may be useful, once the patient's mood has improved somewhat, to explore this further. Also, family interventions would be recommended, if possible. 10/25--tolerating med changes, consider titration of Latuda if reemergence of hypomania. Protective Factors Assessment Employed: No Interval History Chief Complaint "I'm feeling a bit better". Review of Systems Sleep Information Total Hours of Sleep: 6 Sleep Comments: pt on q-15 minute checks Meal Information Percent Meal Consumed - Breakfast: 100 Percent Meal Consumed - Lunch: 100 Subjective Subjective Patient was seen & assessed and interval progress reviewed with Nursing and social work. Patient reports almost immediate improvement in mood with higher dose of Zoloft. He did have some internal restlessness which responded to Artane. He denies any muscle tightness of akathisia. There is not evidence of activation. Physical Exam Psychiatric Orientation: alert and oriented x 3 Apperance: appropriately groomed Eye Contact: good eye contact Motor Behavior: steady gait and station Speech: normal rate/rhythm/volume of speech Affect: + depressed affect Mood: + depressed mood Thought Process: goal directed thought process Thought Content: reality based without delusions Suicidal Thoughts: denies suicidal thoughts Homicidal Thoughts: denies homicidal thoughts Hallucinations: no auditory hallucinations and no visual hallucinations Cognition: recent memory grossly intact Estimated Intelligence: + above average estimated intelligence Insight: + fair insight Judgement: + fair judgement Vital Signs (Past 24 Hours) Last Vital Signs Temp 36.8 C 10/25/18 06:40 Pulse 65 10/25/18 06:41 Resp 16 10/25/18 06:40 BP 110/69 10/25/18 06:41 Pulse Ox 99 10/24/18 17:05 Results & Data Laboratory Results Laboratory Results - last 24 hr 10/24/18 16:47 POC Glucose 87 Current Inpatient Medications Current Inpatient Medications: Current Inpatient Medications Acetaminophen (Tylenol) 650 mg PO Q4H PRN PRN Reason: Headache or Minor Fever Stop: 11/22/18 16:44 Al Hydrox/Mg Hydrox/Simethicone (Maalox) 30 ml PO Q4H PRN PRN Reason: GI Upset Stop: 11/22/18 16:44 Bismuth Subsalicylate (Kaopectate) 15 ml PO PRN PRN PRN Reason: Loose Stool Stop: 11/22/18 16:44 Hydroxyzine HCl (Vistaril) 25 mg PO Q4H PRN PRN Reason: Anxiety Stop: 11/22/18 16:44 Hydroxyzine HCl (Vistaril) 50 mg PO HSZ PRN PRN Reason: Insomnia Stop: 11/22/18 16:44 Lorazepam (Ativan) 0.5 mg PO TID PRN PRN Reason: Anxiety Stop: 11/22/18 18:08 Lurasidone HCl (Latuda) 60 mg PO HS MAGDA Stop: 11/23/18 21:59 Last Admin: 10/24/18 22:15 Dose: 60 mg Documented by: Magnesium Hydroxide (Milk Of Magnesia) 30 ml PO DAILY PRN PRN Reason: Heartburn Stop: 11/22/18 16:44 Sertraline HCl (Zoloft) 150 mg PO QAM MAGDA Stop: 11/23/18 11:29 Last Admin: 10/25/18 09:21 Dose: 150 mg Documented by: Sodium Chloride (Dunn Nasal) 1 - 2 sprays NA PRN PRN PRN Reason: Nasal Dryness/Congestion Stop: 11/22/18 16:44 Trihexyphenidyl HCl (Artane) 2 mg PO QAM MAGDA Stop: 11/24/18 08:59 Last Admin: 10/25/18 09:21 Dose: 2 mg Documented by: Mental Health & Subst Abuse Tx Psychiatrist Name of Psychiatrist: Dr. Llanos Therapist Name of Therapist: Malcom Llanos Date of Therapist Appointment: 11/04/18 Time of Therapist Appointment: 1:00 p.m. Clinical Research Management Associate Name of Clinical Research Management Associate: None Post Discharge Appointments Primary Care Physician Name Of Family Doctor: None Contact Information Discharge Discharge Address: [address] [place], [place] [address] [place] [address] CPT Code CPT Code 87347 (1) Depression Active/Remission status: currently active Depression Type: major depressive disorder Major depression episode severity: unspecified Major depression recurrence: recurrent Qualified Code(s): F33.9 - Major depressive disorder, recurrent, unspecified
[2018-10-25] MEDS: LURASIDONE HCL 40 MG TAB PO SCH (21:29)
[2018-10-26] MEDS: SERTRALINE HCL 100 MG TABLET PO SCH (09:42)
[2018-10-26] MEDS: TRIHEXYPHENIDYL HCL 2 MG TAB PO SCH (09:42)
--- NOTE | 2018-10-26 11:27 | Psychiatric Progress Note ---
Date of Service October 26, 2018 Impression / Recommendations Impression This 28-year-old man presents for possibly his 4th psychiatric hospitalization. He gives a history of the onset of bipolar disorder approximately 5 or 6 years ago and on admission he described one manic episode while he was traveling in [place]. His depressive symptoms worsened when outpatient psychiatrist decreased his Zoloft due to hypomania. (1) Suicidal thoughts: 10/24/18 -The patient reports frequent thoughts of suicide during episodes of depression. He has a history of a very serious suicide attempt that reportedly occurred about 5 years ago in which he cut his neck repeatedly with a sharp object and attempted to jump through a closed window (unsuccessfully). The patient's thoughts of suicide currently have included thoughts of, again, jumping through a window, or banging his head against a hard object. The patient indicates that these thoughts are not associated with a specific plan or intent. However, he clearly says that he wishes that he could simply "be " and wishes that he could "go to sleep and never wake up." (2) Depression: 10/24 -The patient tells us that his current episode of depression is "definitely the worst" depression that he is ever experienced. Although he reports that his suicidal thoughts consist primarily of passive thoughts of without active suicidal plan or intent, he does have a history of having made at least one very serious suicide attempt under similar circumstances. 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 Bipolar depression can be difficult to treat, in part because of the risk of inducing sabra. As noted above, the patient's outpatient psychiatrist reportedly had been tapering his antidepressant medication (sertraline) because the patient had been exhibiting some evidence of hypomania. However, it appears that the patient's hypomania rapidly switched to depression during the sertraline taper, and his dose of sertraline was increased back to 100 mg a day. The plan will be to increase his dose of sertraline to a dose of 150 mg a day. The outpatient psychiatrist advised had been to increase the dose of Latuda (lurasidone) from the current 60 mg a day to a dose of 80 mg a day. Because of the patient's report that he experiences excess sedation at 80 mg (daytime sedation of taken at bedtime (and because he reports that his feelings of jumpiness and restlessness) may worsen at 80 mg, we will hold off increasing lurasidone for the time being. Although the patient does not exhibit cogwheel rigidity on testing today, I will add Artane 5 mg daily because of the patient's report of symptoms consistent with akathisia. We are encouraging the patient to be active in the milieu, to participate as actively as he can in individual and group therapies, avoid retreating to his room, and seeing interactions, even if they are not consistent with his personal wishes, as part of the treatment for depression. Also, the patient expresses certain concerns about his family of origin, and he tells us that this is a frequent source of rumination. It may be useful, once the patient's mood has improved somewhat, to explore this further. Also, family interventions would be recommended, if possible. 10/25--tolerating med changes, consider titration of Latuda if reemergence of hypomania. 10/26--d/c Artane and if symptoms recur shift to pm. Vistaril 50 mg scheduled at bedtime as he seemed somewhat ambivalent about requesting prn. Protective Factors Assessment Employed: No Interval History Chief Complaint "I'm not as confident today. ". Review of Systems Sleep Information Total Hours of Sleep: 7.25 Sleep Comments: pt on q-15 minute checks Meal Information Percent Meal Consumed - Breakfast: 100 Percent Meal Consumed - Lunch: 100 Percent Meal Consumed - Dinner: 100 Subjective Subjective Patient was seen & assessed and interval progress reviewed with Nursing and social work. had successful meeting with roommates who commented on his improvement, patient states though that he doesn't feel as well today. He hasn't been sleeping well per his report both with DFA and awakenings at night (though not reported by staff). Directed to use prn Vistaril as trial. He is more internally preoccupied and now reports dizziness following am meds which he attributes to Artane and he asked about the rationale/ongoing need. Physical Exam Psychiatric Orientation: alert and oriented x 3 Apperance: appropriately groomed Eye Contact: + fair eye contact Motor Behavior: no abnormal motor movements Speech: normal rate/rhythm/volume of speech Affect: + depressed affect Mood: + depressed mood Thought Process: clear/coherent thought process Thought Content: + preoccupation Suicidal Thoughts: denies suicidal thoughts Homicidal Thoughts: denies homicidal thoughts Hallucinations: no auditory hallucinations and no visual hallucinations Cognition: attention grossly intact Insight: + fair insight Judgement: + fair judgement Vital Signs (Past 24 Hours) Last Vital Signs Temp 36.4 C L 10/26/18 06:44 Pulse 68 10/26/18 06:45 Resp 16 10/26/18 06:44 BP 118/79 10/26/18 06:45 Pulse Ox 99 10/24/18 17:05 Results & Data Current Inpatient Medications Current Inpatient Medications: Current Inpatient Medications Acetaminophen (Tylenol) 650 mg PO Q4H PRN PRN Reason: Headache or Minor Fever Stop: 11/22/18 16:44 Al Hydrox/Mg Hydrox/Simethicone (Maalox) 30 ml PO Q4H PRN PRN Reason: GI Upset Stop: 11/22/18 16:44 Bismuth Subsalicylate (Kaopectate) 15 ml PO PRN PRN PRN Reason: Loose Stool Stop: 11/22/18 16:44 Hydroxyzine HCl (Vistaril) 25 mg PO Q4H PRN PRN Reason: Anxiety Stop: 11/22/18 16:44 Hydroxyzine HCl (Vistaril) 50 mg PO HSZ MAGDA Stop: 11/25/18 21:59 Lorazepam (Ativan) 0.5 mg PO TID PRN PRN Reason: Anxiety Stop: 11/22/18 18:08 Lurasidone HCl (Latuda) 60 mg PO HS MAGDA Stop: 11/23/18 21:59 Last Admin: 10/25/18 21:29 Dose: 60 mg Documented by: Magnesium Hydroxide (Milk Of Magnesia) 30 ml PO DAILY PRN PRN Reason: Heartburn Stop: 11/22/18 16:44 Sertraline HCl (Zoloft) 150 mg PO QAM MAGDA Stop: 11/23/18 11:29 Last Admin: 10/26/18 09:42 Dose: 150 mg Documented by: Sodium Chloride ([place]ion Nasal) 1 - 2 sprays NA PRN PRN PRN Reason: Nasal Dryness/Congestion Stop: 11/22/18 16:44 Mental Health & Subst Abuse Tx Psychiatrist Name of Psychiatrist: Dr. Llanos Psychiatrist's Psychiatric Appointment Comment: [address], [address], [place] [address] Therapist Name of Therapist: Malcom Llanos Therapist's Date of Therapist Appointment: 11/04/18 Time of Therapist Appointment: 1:00 p.m. Therapy Appointment Comment: SAAD Yepez Paste Thinner Name of Paste Thinner: None Post Discharge Appointments Primary Care Physician Name Of Family Doctor: None Contact Information Discharge Discharge Address: [address], [place] [address] CPT Code CPT Code 38244 (1) Depression Active/Remission status: currently active Depression Type: major depressive disorder Major depression episode severity: unspecified Major depression recurrence: recurrent Qualified Code(s): F33.9 - Major depressive disorder, recurrent, unspecified
[2018-10-26] MEDS: LURASIDONE HCL 40 MG TAB PO SCH (21:00)
[2018-10-27] MEDS: SERTRALINE HCL 100 MG TABLET PO SCH (08:27)
--- NOTE | 2018-10-27 11:15 | Psychiatric Progress Note ---
Date of Service October 27, 2018 Impression / Recommendations Impression This 28-year-old man presents for possibly his 4th psychiatric hospitalization. He gives a history of the onset of bipolar disorder approximately 5 or 6 years ago and on admission he described one manic episode while he was traveling in [place]. His depressive symptoms worsened when outpatient psychiatrist decreased his Zoloft due to hypomania. Zoloft has since been titrated to 150mg with rather sudden improvements reported in mood. Pt denies ongoing SI, but reports today some regression in regard to isolative behavior, increased difficulty with motivation, and lower mood compared to the past several days. Will need to continue to observe for mood fluctuations given antidepressant adjustments in the setting of a reported bipolar disorder. With patient's history of suicidal ideation and several serious suicide attempts, it is recommended that he remain in inpatient psychiatric treatment at this time in order to ensure consistency of mood and ability to utilize safety plan effective prior to discharge. Based on today's reports of some regression, there is concern for decompensation and return of SI and inability to function if patient is discharged prematurely. (1) Suicidal thoughts: 10/24/18 -The patient reports frequent thoughts of suicide during episodes of depression. He has a history of a very serious suicide attempt that reportedly occurred about 5 years ago in which he cut his neck repeatedly with a sharp object and attempted to jump through a closed window (unsuccessfully). The patient's thoughts of suicide currently have included thoughts of, again, jumping through a window, or banging his head against a hard object. The patient indicates that these thoughts are not associated with a specific plan or intent. However, he clearly says that he wishes that he could simply "be " and wishes that he could "go to sleep and never wake up." 10/27 - Denies SI, but recognizing some regression in regard to isolative desires and lower mood today - which increases risk of SI representing - Continue admission to ensure consistency of mood and ability to utilize coping strategies and safety plan effectively (2) Depression: 10/24 -The patient tells us that his current episode of depression is "definitely the worst" depression that he is ever experienced. Although he reports that his suicidal thoughts consist primarily of passive thoughts of without active suicidal plan or intent, he does have a history of having made at least one very serious suicide attempt under similar circumstances. 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 Bipolar depression can be difficult to treat, in part because of the risk of inducing sabra. As noted above, the patient's outpatient psychiatrist reportedly had been tapering his antidepressant medication (sertraline) because the patient had been exhibiting some evidence of hypomania. However, it appears that the patient's hypomania rapidly switched to depression during the sertraline taper, and his dose of sertraline was increased back to 100 mg a day. The plan will be to increase his dose of sertraline to a dose of 150 mg a day. The outpatient psychiatrist advised had been to increase the dose of Latuda (lurasidone) from the current 60 mg a day to a dose of 80 mg a day. Because of the patient's report that he experiences excess sedation at 80 mg (daytime sedation of taken at bedtime (and because he reports that his feelings of jumpiness and restlessness) may worsen at 80 mg, we will hold off increasing lurasidone for the time being. Although the patient does not exhibit cogwheel rigidity on testing today, I will add Artane 5 mg daily because of the patient's report of symptoms consistent with akathisia. We are encouraging the patient to be active in the milieu, to participate as actively as he can in individual and group therapies, avoid retreating to his room, and seeing interactions, even if they are not consistent with his personal wishes, as part of the treatment for depression. Also, the patient expresses certain concerns about his family of origin, and he tells us that this is a frequent source of rumination. It may be useful, once the patient's mood has improved somewhat, to explore this further. Also, family interventions would be recommended, if possible. 10/25--tolerating med changes, consider titration of Latuda if reemergence of hypomania. 10/26--d/c Artane and if symptoms recur shift to pm. Vistaril 50 mg scheduled at bedtime as he seemed somewhat ambivalent about requesting prn. 10/27 - Continue current medication regimen; per order, Vistaril can be repeated x1 for nighttime awakening - Encourage participation in group programming, as he reports feeling more withdrawn today - Solidify aftercare appointment Protective Factors Assessment Employed: No Interval History Identifying Information MARLENE MCLEAN is a 28-year-old M who currently lives in [place] with several roommates. He has a history of bipolar disorder and was admitted on 10/23/18 17:20 on a 201 voluntary agreement because of suicidal thoughts, with a past history of a serious suicide attempt. Chief Complaint "I'm feeling better overall, but I'd say my mood is less than yesterday." Review of Systems Notes Constitutional: denies overt restlessness, or symptoms suggestive of akathisia Cardiovascular: denied Respiratory: denied Gastrointestinal: denied Neurological: denied Psychiatric: denies symptoms other than stated above Total of at least 10 systems reviewed, pertinent positives as above and in HPI. Sleep Information Total Hours of Sleep: 6.5 Sleep Comments: pt on q-15 minute checks. pt on q-15 minute checks Meal Information Percent Meal Consumed - Breakfast: 100 Percent Meal Consumed - Lunch: 100 Percent Meal Consumed - Dinner: 100 Subjective Subjective Patient was seen & assessed and interval progress reviewed with Treatment Team. Staff report the patient has been attending programming. He participated in a family meeting over the weekend (10/25) with his roommate and an additional friend, whom confirm weapons have been secured. Patient was seen today to assess progress since admission. Pt states he is "feeling better overall", and states, "I'm not hopeless anymore." Pt denies SI, but does admit that he if feeling lower today than yesterday. Pt states, "I just noticed it was really hard to get out of bed today, I'm feeling more withdrawn." We discussed these symptoms being similar to his behavior prior to admission - more isolative behavior leading to inability to function. Pt states he did not sleep well last evening, falling asleep rather well but awakening at 3:00am and being unsuccessful at obtaining restful sleep after that time. Pt denies restlessness or symptoms suggestive of akathisia, and does not feel that return to Artane will be necessary. He has difficulty describing his "restlessness" - at one point calling it "chest discomfort." He states this has been reduced over the past day or so, even without use of Artane. Pt denies other needs or concerns today, but acknowledges another day our so would be beneficial, to ensure the presence of mood stability prior to discharge. Physical Exam Psychiatric Orientation: alert, oriented x 3 and cooperative Apperance: appropriately dressed (casually, in jeans and a sweatshirt), appropriately groomed and appeared stated age Eye Contact: good eye contact Motor Behavior: steady gait and station and no abnormal motor movements Speech: normal rate/rhythm/volume of speech (some pauses noticed prior to answering questions-as if thinking of response) Affect: + blunted affect Mood: + depressed mood ("Less than yesterday" and "not hopeless") Thought Process: goal directed thought process and clear/coherent thought process No obvious evidence of thought blocking, but there are some significant pauses present prior to responding to questions - appear to be very thoroughly calculating response before answering. Thought Content: reality based without delusions Suicidal Thoughts: denies suicidal thoughts and denies suicidal intent Homicidal Thoughts: denies homicidal thoughts Hallucinations: no auditory hallucinations and no visual hallucinations Cognition: attention grossly intact and language grossly intact Estimated Intelligence: consistent with education level Insight: + fair insight Judgement: + fair judgement Vital Signs (Past 24 Hours) Last Vital Signs Temp 36.4 C L 10/27/18 06:46 Pulse 67 10/27/18 06:47 Resp 18 10/27/18 06:46 BP 100/66 10/27/18 06:47 Pulse Ox 99 10/24/18 17:05 Results & Data Current Inpatient Medications Current Inpatient Medications: Current Inpatient Medications Acetaminophen (Tylenol) 650 mg PO Q4H PRN PRN Reason: Headache or Minor Fever Stop: 11/22/18 16:44 Al Hydrox/Mg Hydrox/Simethicone (Maalox) 30 ml PO Q4H PRN PRN Reason: GI Upset Stop: 11/22/18 16:44 Bismuth Subsalicylate (Kaopectate) 15 ml PO PRN PRN PRN Reason: Loose Stool Stop: 11/22/18 16:44 Hydroxyzine HCl (Vistaril) 25 mg PO Q4H PRN PRN Reason: Anxiety Stop: 11/22/18 16:44 Hydroxyzine HCl (Vistaril) 50 mg PO HSZ MAGDA Stop: 11/25/18 21:59 Last Admin: 10/26/18 21:02 Dose: 50 mg Documented by: Lorazepam (Ativan) 0.5 mg PO TID PRN PRN Reason: Anxiety Stop: 11/22/18 18:08 Lurasidone HCl (Latuda) 60 mg PO HS MAGDA Stop: 11/23/18 21:59 Last Admin: 10/26/18 21:00 Dose: 60 mg Documented by: Magnesium Hydroxide (Milk Of Magnesia) 30 ml PO DAILY PRN PRN Reason: Heartburn Stop: 11/22/18 16:44 Sertraline HCl (Zoloft) 150 mg PO QAM MAGDA Stop: 11/23/18 11:29 Last Admin: 10/27/18 08:27 Dose: 150 mg Documented by: Sodium Chloride ([place] Nasal) 1 - 2 sprays NA PRN PRN PRN Reason: Nasal Dryness/Congestion Stop: 11/22/18 16:44 Mental Health & Subst Abuse Tx Psychiatrist Name of Psychiatrist: Dr. Llanos Psychiatrist's Psychiatric Appointment Comment: [address] [place] [address], [address], [place] [address] Therapist Name of Therapist: Malcom Llanos Therapist's Date of Therapist Appointment: 11/04/18 Time of Therapist Appointment: 1:00 p.m. Therapy Appointment Comment: SAAD Yepez Pheresis Specialist Name of Pheresis Specialist: None Post Discharge Appointments Primary Care Physician Name Of Family Doctor: None Contact Information Discharge Discharge Address: [facility] [address], [place], [place] [address] CPT Code CPT Code 06618 (1) Depression Active/Remission status: currently active Depression Type: major depressive disorder Major depression episode severity: unspecified Major depression recurrence: recurrent Qualified Code(s): F33.9 - Major depressive disorder, recurrent, unspecified
[2018-10-27] MEDS: LURASIDONE HCL 40 MG TAB PO SCH (21:42)
[2018-10-28] MEDS: SERTRALINE HCL 100 MG TABLET PO SCH (08:55)
--- NOTE | 2018-10-28 13:22 | Psychiatric Progress Note ---
Date of Service October 28, 2018 Impression / Recommendations Impression This 28-year-old man presents for possibly his 4th psychiatric hospitalization. He gives a history of the onset of bipolar disorder approximately 5 or 6 years ago and on admission he described one manic episode while he was traveling in [place]. His depressive symptoms worsened when outpatient psychiatrist decreased his Zoloft due to hypomania. Zoloft has since been titrated to 150mg with rather sudden improvements reported in mood. Pt denies ongoing SI, but reports today some regression in regard to isolative behavior, increased difficulty with motivation, and lower mood compared to the past several days. Will need to continue to observe for mood fluctuations given antidepressant adjustments in the setting of a reported bipolar disorder. With patient's history of suicidal ideation and several serious suicide attempts, it is recommended that he remain in inpatient psychiatric treatment at this time in order to ensure consistency of mood and ability to utilize safety plan effective prior to discharge. Based on today's reports of some regression, there is concern for decompensation and return of SI and inability to function if patient is discharged prematurely. (1) Suicidal thoughts: 10/24/18 -The patient reports frequent thoughts of suicide during episodes of depression. He has a history of a very serious suicide attempt that reportedly occurred about 5 years ago in which he cut his neck repeatedly with a sharp object and attempted to jump through a closed window (unsuccessfully). The patient's thoughts of suicide currently have included thoughts of, again, jumping through a window, or banging his head against a hard object. The patient indicates that these thoughts are not associated with a specific plan or intent. However, he clearly says that he wishes that he could simply "be " and wishes that he could "go to sleep and never wake up." 10/27 - Denies SI, but recognizing some regression in regard to isolative desires and lower mood today - which increases risk of SI representing - Continue admission to ensure consistency of mood and ability to utilize coping strategies and safety plan effectively (2) Depression: 10/24 -The patient tells us that his current episode of depression is "definitely the worst" depression that he is ever experienced. Although he reports that his suicidal thoughts consist primarily of passive thoughts of without active suicidal plan or intent, he does have a history of having made at least one very serious suicide attempt under similar circumstances. 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 Bipolar depression can be difficult to treat, in part because of the risk of inducing sabra. As noted above, the patient's outpatient psychiatrist reportedly had been tapering his antidepressant medication (sertraline) because the patient had been exhibiting some evidence of hypomania. However, it appears that the patient's hypomania rapidly switched to depression during the sertraline taper, and his dose of sertraline was increased back to 100 mg a day. The plan will be to increase his dose of sertraline to a dose of 150 mg a day. The outpatient psychiatrist advised had been to increase the dose of Latuda (lurasidone) from the current 60 mg a day to a dose of 80 mg a day. Because of the patient's report that he experiences excess sedation at 80 mg (daytime sedation of taken at bedtime (and because he reports that his feelings of jumpiness and restlessness) may worsen at 80 mg, we will hold off increasing lurasidone for the time being. Although the patient does not exhibit cogwheel rigidity on testing today, I will add Artane 5 mg daily because of the patient's report of symptoms consistent with akathisia. We are encouraging the patient to be active in the milieu, to participate as actively as he can in individual and group therapies, avoid retreating to his room, and seeing interactions, even if they are not consistent with his personal wishes, as part of the treatment for depression. Also, the patient expresses certain concerns about his family of origin, and he tells us that this is a frequent source of rumination. It may be useful, once the patient's mood has improved somewhat, to explore this further. Also, family interventions would be recommended, if possible. 10/25--tolerating med changes, consider titration of Latuda if reemergence of hypomania. 10/26--d/c Artane and if symptoms recur shift to pm. Vistaril 50 mg scheduled at bedtime as he seemed somewhat ambivalent about requesting prn. 10/27 - Continue current medication regimen; per order, Vistaril can be repeated x1 for nighttime awakening - Encourage participation in group programming, as he reports feeling more withdrawn today - Solidify aftercare appointment 10/28 - Continue current medication regimen; encourage journaling as a way to begin processing reportedly racing thoughts - Continue inpatient admission, as patient's condition is worsened over the past 2 days - Continue attempts to schedule appointment with his outpatient psychiatrist. Protective Factors Assessment Employed: No Interval History Identifying Information MARLENE MCLEAN is a 28-year-old M who currently lives in [place] with several roommates. He has a history of bipolar disorder and was admitted on 10/23/18 17:20 on a 201 voluntary agreement because of suicidal thoughts, with a past history of a serious suicide attempt. Chief Complaint "I don't know. I let my mind wander more today, which just leads to negative thoughts." Review of Systems Notes Constitutional: denied Cardiovascular: denied Respiratory: denied Gastrointestinal: denied Neurological: denied Psychiatric: denies symptoms other than stated above Total of at least 10 systems reviewed, pertinent positives as above and in HPI. Sleep Information Total Hours of Sleep: 7.5 Sleep Comments: pt given vistaril per rn. pt on q-15 minute checks Meal Information Percent Meal Consumed - Breakfast: 100 Percent Meal Consumed - Lunch: 100 Percent Meal Consumed - Dinner: 100 Subjective Subjective Patient was seen & assessed and interval progress reviewed with Nursing and social work. Staff reports the patient has described his overall progress as "up and down", at times appearing slowed to staff. He has continued to attend groups, but has been rather focused on existential questions. Pt was seen today to assess progress since admission. Pt states he is having some increased difficulty today. He admits to ongoing difficulty with motivation and desire to withdraw. He feels his thoughts have been racing today, leading to more negative thoughts. While patient denies SI, he continues to endorse hopelessness stating - "I have some many thoughts, I can't process them all." He states, "I worry people will think I'm crazy if I share my thoughts, I don't even know if I could. But I know I have to be my best advocate, the trouble is I don't trust myself to do that." Pt reports believing that he thinks "more deeply" than most, and therefore, "the dark thoughts just string together and make me more hopeless." Pt states, "I have little hope I can be helped." Pt denies medication side effects at this time. We discussed journaling as a coping strategy and way to organize his thoughts in a way that they can be p rocessed with staff now, and his outpatient providers later. Pt states he used to journal regularly and found it helpful. He was willing to attempt to return to this habit for a period of time. Pt agrees that he is noticing regression, and admits to concern about the idea of discharge at this time. Physical Exam Psychiatric Orientation: alert, oriented x 3 and cooperative Apperance: appropriately dressed, appropriately groomed and appeared stated age Eye Contact: + poor eye contact (staring at floor quite frequently) Motor Behavior: steady gait and station and no abnormal motor movements Speech: normal rate/rhythm/volume of speech (though does have prolonged pauses prior to answering questions) Affect: + anxious affect and + flat affect Mood: + depressed mood ("Probably worse today" and "I'm letting my mind wander") and + anxious mood Thought Process: goal directed thought process and clear/coherent thought process No overt thought blocking, as patient is able to provide coherent responses to questions and does not appear to be responding to internal stimuli - he does, however, have rather prolonged delays prior to answer questions, as if considering response rather thoroughly prior to speaking Thought Content: reality based without delusions, + hopelessness and + worthlessness Suicidal Thoughts: denies suicidal thoughts and denies suicidal intent Homicidal Thoughts: denies homicidal thoughts Hallucinations: no auditory hallucinations and no visual hallucinations Cognition: attention grossly intact and language grossly intact Estimated Intelligence: + above average estimated intelligence Insight: + fair insight Judgement: + fair judgement Vital Signs (Past 24 Hours) Last Vital Signs Temp 36.4 C L 10/28/18 06:50 Pulse 59 L 10/28/18 06:51 Resp 16 10/28/18 06:50 BP 115/79 10/28/18 06:51 Pulse Ox 99 10/24/18 17:05 Results & Data Current Inpatient Medications Current Inpatient Medications: Current Inpatient Medications Acetaminophen (Tylenol) 650 mg PO Q4H PRN PRN Reason: Headache or Minor Fever Stop: 11/22/18 16:44 Al Hydrox/Mg Hydrox/Simethicone (Maalox) 30 ml PO Q4H PRN PRN Reason: GI Upset Stop: 11/22/18 16:44 Bismuth Subsalicylate (Kaopectate) 15 ml PO PRN PRN PRN Reason: Loose Stool Stop: 11/22/18 16:44 Hydroxyzine HCl (Vistaril) 25 mg PO Q4H PRN PRN Reason: Anxiety Stop: 11/22/18 16:44 Hydroxyzine HCl (Vistaril) 50 mg PO HSZ MAGDA Stop: 11/25/18 21:59 Last Admin: 10/27/18 21:46 Dose: 50 mg Documented by: Lorazepam (Ativan) 0.5 mg PO TID PRN PRN Reason: Anxiety Stop: 11/22/18 18:08 Lurasidone HCl (Latuda) 60 mg PO HS MAGDA Stop: 11/23/18 21:59 Last Admin: 10/27/18 21:42 Dose: 60 mg Documented by: Magnesium Hydroxide (Milk Of Magnesia) 30 ml PO DAILY PRN PRN Reason: Heartburn Stop: 11/22/18 16:44 Sertraline HCl (Zoloft) 150 mg PO QAM MAGDA Stop: 11/23/18 11:29 Last Admin: 10/28/18 08:55 Dose: 150 mg Documented by: Sodium Chloride ([place] Nasal) 1 - 2 sprays NA PRN PRN PRN Reason: Nasal Dryness/Congestion Stop: 11/22/18 16:44 Mental Health & Subst Abuse Tx Psychiatrist Name of Psychiatrist: Dr. Llanos Psychiatrist's Psychiatric Appointment Comment: [address] [facility], [address], [place] [address] Therapist Name of Therapist: Malcom Llanos Therapist's Date of Therapist Appointment: 11/04/18 Time of Therapist Appointment: 1:00 p.m. Therapy Appointment Comment: SAAD Yepez [employer] Name of Middle School Math Teacher: None Post Discharge Appointments Primary Care Physician Name Of Family Doctor: None Contact Information Discharge Discharge Address: [facility] [address], [place] [address] CPT Code CPT Code 75311 (1) Depression Active/Remission status: currently active Depression Type: major depressive disorder Major depression episode severity: unspecified Major depression recurrence: recurrent Qualified Code(s): F33.9 - Major depressive disorder, rec urrent, unspecified
[2018-10-28] MEDS: LURASIDONE HCL 40 MG TAB PO SCH (21:02)
[2018-10-29] MEDS: SERTRALINE HCL 100 MG TABLET PO SCH (09:34)
--- NOTE | 2018-10-29 11:17 | Psychiatric Progress Note ---
Date of Service October 29, 2018 Impression / Recommendations Impression 28-year-old patient with bipolar disorder NOS who presented for possibly his 4th psychiatric hospitalization. He gives a history of the onset of bipolar disorder approximately 5 or 6 years ago, with one manic episode while he was traveling in [place]. His depressive symptoms worsened when his outpatient psychiatrist decreased his Zoloft due to hypomania. Zoloft has since been titrated to 150mg, initially with rapid improvement in mood, but over the past 2 days mood has worsened precipitously, with hopelessness, worthlessness, thought blocking, cognitive distortions, and no desire to live. He is anergic and struggling to participate in groups and therapy. Inpatient treatment is necessary due to the risk for suicide if discharged. (1) Suicidal thoughts: 10/24/18 -The patient reports frequent thoughts of suicide during episodes of depression. He has a history of a very serious suicide attempt that reportedly occurred about 5 years ago in which he cut his neck repeatedly with a sharp object and attempted to jump through a closed window (unsuccessfully). The patient's thoughts of suicide currently have included thoughts of, again, jumping through a window, or banging his head against a hard object. The patient indicates that these thoughts are not associated with a specific plan or intent. However, he clearly says that he wishes that he could simply "be " and wishes that he could "go to sleep and never wake up." 10/27 - Denies SI, but recognizing some regression in regard to isolative desires and lower mood today - which increases risk of SI representing - Continue admission to ensure consistency of mood and ability to utilize coping strategies and safety plan effectively 10/29 - Worsening mood and SI. Continue safety checks. Present on Admission?: Yes (2) Depression: 10/24 -The patient tells us that his current episode of depression is "definitely t he worst" depression that he is ever experienced. Although he reports that his suicidal thoughts consist primarily of passive thoughts of without active suicidal plan or intent, he does have a history of having made at least one very serious suicide attempt under similar circumstances. 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 Bipolar depression can be difficult to treat, in part because of the risk of inducing sabra. As noted above, the patient's outpatient psychiatrist reportedly had been tapering his antidepressant medication (sertraline) because the patient had been exhibiting some evidence of hypomania. However, it appears that the patient's hypomania rapidly switched to depression during the sertraline taper, and his dose of sertraline was increased back to 100 mg a day. The plan will be to increase his dose of sertraline to a dose of 150 mg a day. The outpatient psychiatrist advised had been to increase the dose of Latuda (lurasidone) from the current 60 mg a day to a dose of 80 mg a day. Because of the patient's repo rt that he experiences excess sedation at 80 mg (daytime sedation of taken at bedtime (and because he reports that his feelings of jumpiness and restlessness) may worsen at 80 mg, we will hold off increasing lurasidone for the time being. Although the patient does not exhibit cogwheel rigidity on testing today, I will add Artane 5 mg daily because of the patient's report of symptoms consistent wi th akathisia. We are encouraging the patient to be active in the milieu, to participate as actively as he can in individual and group therapies, avoid retreating to his room, and seeing interactions, even if they are not consistent with his personal wishes, as part of the treatment for depression. Also, the patient expresses certain concerns about his family of origin, and he tells us that this is a frequent source of rumination. It may be useful, once the patient's mood has improved somewhat, to explore this further. Also, family interventions would be recommended, if possible. 10/25--tolerating med changes, consider titration of Latuda if reemergence of hypomania. 10/26--d/c Artane and if symptoms recur shift to pm. Vistaril 50 mg scheduled at bedtime as he seemed somewhat ambivalent about requesting prn. 10/27 - Continue current medication regimen; per order, Vistaril can be repeated x1 for nighttime awakening - Encourage participation in group programming, as he reports feeling more withdrawn today - Solidify aftercare appointment 10/28 - Continue current medication regimen; encourage journaling as a way to begin processing reportedly racing thoughts - Continue inpatient admission, as patient's condition is worsened over the past 2 days - Continue attempts to schedule appointment with his outpatient psychiatrist. 10/29 - Increase lurasidone to 80mg daily for bipolar depression, and give with dinner to ensure adequate absorption. - Continue sertraline 150mg daily. 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 Chief Complaint "Not real good". Review of Systems Notes 10 systems reviewed and negative except as stated above Sleep Information Total Hours of Sleep: 8.5 Sleep Comments: awake at 0115, checked the time and appeared to go right back to sleep. Meal Information Percent Meal Consumed - Breakfast: 50 Percent Meal Consumed - Lunch: 100 Percent Meal Consumed - Dinner: 80 Subjective Subjective Patient was seen & assessed and interval progress reviewed with Treatment Team. Staff report his condition has worsened, he is reporting severe depression and hopelessness, and isolating in his room in bed. He did attend some groups yesterday, and reported low energy and racing thoughts. His mother contacted staff and expressed concerns that the precipitous change in his mood from the day prior. She also noted pauses when talking, difficulty communicating, and did not think he was anywhere near ready for discharge. The patient reported the phone conversations with his parents were very difficult, as they were not compassionate, and that he felt overwhelmed after talking to her mother because of the aggressive way she communicates. He declined further phone calls from her. He is taking medications as prescribed, but required significant encouragement to get out of bed and come to breakfast this morning. He told staff he has never felt this depressed, and that he "feels like it's over for me," "I feel like I will never be high functioning again." On my assessment, he was seen in his room where he has been in bed all morning, declining groups. He states his mood has worsened over the past couple of days, and denies any specific triggers. He says "the thoughts came back," but when asked to clarify, states "I don't remember what I was thinking." He admits to more negative thoughts, for example "I'm not as sharp as I used to be, things are in decline, I won't be able to..." He often trails off without finishing the sentence, and reports thoughts are slower, and he feels forgetful and absent-minded. He reports difficulty focusing, lack of energy and motivation, and states he just does not want to get out of bed. He has not been performing ADLs regularly, for example is not brushing his teeth, and reports psychomotor slowing. He endorses hopelessness, and suicidal thoughts, stating "there's no hope for me," and that he does not want to be here anymore. He says he is just been lying in bed, awake, "thinking," but admits that it is not helping him to feel better in any way. Called the patient's father at his request: He wanted to inform me that the patient is not doing well, and didn't know what the plan was. He was upset that the patient was lying in bed during the daytime. Reviewed the patient's treatment plan, medication changes, and answered multiple questions. He wanted to know if a medication he saw a TV ad for (Rexulti) would be indicated to "enhance mood." He also asked about CBD oil for side effects of medication or sleep. He notes the patient has had frequent and rapid mood changes in the past week or so, with times where he is "speaking normal" and other times where he is depressed and unable to communicate fluidly. Physical Exam Psychiatric Orientation: alert, oriented x 3 and cooperative Apperance: appropriately dressed and + disheveled Eye Contact: + poor eye contact Motor Behavior: + psychomotor retardation Speech is delayed, slowed, soft. Affect: + depressed affect, + constricted affect and mood congruent with affect Mood: + depressed mood Thought Process: + thought blocking Thought Content: + cognitive distortions, + hopelessness, + worthlessness, + guilt and + self deprecation Suicidal Thoughts: + reports suicidal thoughts Homicidal Thoughts: denies homicidal thoughts Hallucinations: no auditory hallucinations and no visual hallucinations Cognition: recent memory grossly intact and language grossly intact; + attention not intact Insight: + impaired insight Judgement: + impaired judgement Vital Signs (Past 24 Hours) Last Vital Signs Temp 36.6 C 10/29/18 06:40 Pulse 68 10/29/18 06:41 Resp 16 10/29/18 06:40 BP 122/81 10/29/18 06:41 Pulse Ox 99 10/24/18 17:05 Results & Data Current Inpatient Medications Current Inpatient Medications: Current Inpatient Medications Acetaminophen (Tylenol) 650 mg PO Q4H PRN PRN Reason: Headache or Minor Fever Stop: 11/22/18 16:44 Al Hydrox/Mg Hydrox/Simethicone (Maalox) 30 ml PO Q4H PRN PRN Reason: GI Upset Stop: 11/22/18 16:44 Bismuth Subsalicylate (Kaopectate) 15 ml PO PRN PRN PRN Reason: Loose Stool Stop: 11/22/18 16:44 Hydroxyzine HCl (Vistaril) 25 mg PO Q4H PRN PRN Reason: Anxiety Stop: 11/22/18 16:44 Hydroxyzine HCl (Vistaril) 50 mg PO HSZ [facility] Stop: 11/25/18 21:59 Last Admin: 10/28/18 21:02 Dose: 50 mg Documented by: Lorazepam (Ativan) 0.5 mg PO TID PRN PRN Reason: Anxiety Stop: 11/22/18 18:08 Lurasidone HCl (Latuda) 60 mg PO HS [facility] Stop: 11/23/18 21:59 Last Admin: 10/28/18 21:02 Dose: 60 mg Documented by: Magnesium Hydroxide (Milk Of Magnesia) 30 ml PO DAILY PRN PRN Reason: Heartburn Stop: 11/22/18 16:44 Sertraline HCl (Zoloft) 150 mg PO QAM MAGDA Stop: 11/23/18 11:29 Last Admin: 10/29/18 09:34 Dose: 150 mg Documented by: Sodium Chloride ([place] Nasal) 1 - 2 sprays NA PRN PRN PRN Reason: Nasal Dryness/Congestion Stop: 11/22/18 16:44 Mental Health & Subst Abuse Tx Psychiatrist Name of Psychiatrist: Dr. Llanos Psychiatrist's Psychiatric Appointment Comment: [address], [address], [place] [address] Therapist Name of Therapist: Malcom Llanos Therapist's Date of Therapist Appointment: 11/04/18 Time of Therapist Appointment: 1:00 p.m. Therapy Appointment Comment: SAAD Yepez Machine Milker Name of Machine Milker: None Post Discharge Appointments Primary Care Physician Name Of Family Doctor: None Contact Information Discharge Discharge Address: [address], [place] [address] CPT Code CPT Code 94512 (1) Depression Active/Remission status: currently active Depression Type: major depressive disorder Major depression episode severity: unspecified Major depression recurrence: recurrent Qualified Code(s): F33.9 - Major depressive disorder, recurrent, unspecified
[2018-10-29] MEDS ORDERED: LURASIDONE HCL 40 MG TAB PO SCH (17:45)
[2018-10-29] MEDS: LURASIDONE HCL 40 MG TAB PO SCH (21:16)
[2018-10-30 08:30] LABS: Glucose Fasting 80 mg/dl (70-99)
[2018-10-30 08:36] LABS: Chol HDL Ratio 3; Cholesterol 137 mg/dl (0-200); HDL Cholesterol 52 mg/dl; LDL Cholesterol Calculated 76 mg/dl; Triglycerides 45 mg/dl (0-150); VLDL Cholesterol 9 mg/dl
[2018-10-30] MEDS: SERTRALINE HCL 100 MG TABLET PO SCH (08:57)
--- NOTE | 2018-10-30 12:22 | Psychiatric Progress Note ---
Date of Service October 30, 2018 Impression / Recommendations Impression 28-year-old patient with bipolar disorder NOS who presented for possibly his 4th psychiatric hospitalization. He gives a history of the onset of bipolar disorder approximately 5 or 6 years ago, with one manic episode while he was traveling in [place]. His depressive symptoms worsened when his outpatient psychiatrist decreased his Zoloft due to hypomania. Zoloft has since been titrated to 150mg, initially with rapid improvement in mood, but over the past 2 days mood has worsened precipitously, with hopelessness, worthlessness, thought blocking, cognitive distortions, and no desire to live. He is anergic and struggling to participate in groups and therapy - but with encouragement is willing to do so. Lurasidone was subsequently increased to 80mg daily. Fasting labs obtained and WNL. Will increase hydroxyzine at HS to 100mg, as he continues to report difficulty sleeping on the unit. Inpatient treatment is necessary due to the risk for suicide if discharged. (1) Suicidal thoughts: 10/24/18 -The patient reports frequent thoughts of suicide during episodes of depression. He has a history of a very serious suicide attempt that reportedly occurred about 5 years ago in which he cut his neck repeatedly with a sharp object and attempted to jump through a closed window (unsuccessfully). The patient's thoughts of suicide currently have included thoughts of, again, jumping through a window, or banging his head against a hard object. The patient indicates that these thoughts are not associated with a specific plan or intent. However, he clearly says that he wishes that he could simply "be " and wishes that he could "go to sleep and never wake up." 10/27 - Denies SI, but recognizing some regression in regard to isolative desires and lower mood today - which increases risk of SI representing - Continue admission to ensure consistency of mood and ability to utilize coping strategies and safety plan effectively 10/29 - Worsening mood and SI. Continue safety checks. (2) Bipolar disorder current episode depressed: 10/24 -The patient tells us that his current episode of depression is "definitely the worst" depression that he is ever experienced. Although he reports that his suicidal thoughts consist primarily of passive thoughts of without active suicidal plan or intent, he does have a history of having made at least one very serious suicide attempt under similar circumstances. 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 Bipolar depression can be difficult to treat, in part because of the risk of inducing sabra. As noted above, the patient's outpatient psychiatrist reportedly had been tapering his antidepressant medication (sertraline) because the patient had been exhibiting some evidence of hypomania. However, it appears that the pat iezion's hypomania rapidly switched to depression during the sertraline taper, and his dose of sertraline was increased back to 100 mg a day. The plan will be to increase his dose of sertraline to a dose of 150 mg a day. The outpatient psychiatrist advised had been to increase the dose of Latuda (lurasidone) from the current 60 mg a day to a dose of 80 mg a day. Because of the patient's report that he experiences excess sedation at 80 mg (daytime sedation of taken at bedtime (and because he reports that his feelings of jumpiness and restlessness) may worsen at 80 mg, we will hold off increasing lurasidone for the time being. Although the patient does not exhibit cogwheel rigidity on testing today, I will add Artane 5 mg daily because of the patient's report of symptoms consistent with akathisia. We are encouraging the patient to be active in the milieu, to participate as actively as he can in individual and group therapies, avoid retreating to his room, and seeing interactions, even if they are not consistent with his personal wishes, as part of the treatment for depression. Also, the patient expresses certain concerns about his family of origin, and he tells us that this is a frequent source of rumination. It may be useful, once the patient's mood has improved somewhat, to explore this further. Also, family interventions would be recommended, if possible. 10/25--tolerating med changes, consider titration of Latuda if reemergence of hypomania. 10/26--d/c Artane and if symptoms recur shift to pm. Vistaril 50 mg scheduled at bedtime as he seemed somewhat ambivalent about requesting prn. 10/27 - Continue current medication regimen; per order, Vistaril can be repeated x1 for nighttime awakening - Encourage participation in group programming, as he reports feeling more withdrawn today - Solidify aftercare appointment 10/28 - Continue current medication regimen; encourage journaling as a way to begin processing reportedly racing thoughts - Continue inpatient admission, as patient's condition is worsened over the past 2 days - Continue attempts to schedule appointment with his outpatient psychiatrist. 10/29 - Increase lurasidone to 80mg daily for bipolar depression, and give with dinner to ensure adequate absorption. - Continue sertraline 150mg daily. 10/30 - Continue medication regimen as above - Continue to encourage patient's participation in groups, encouraging 1:1 counseling as desired - Reports mood is more consistent today - Fasting glucose and lipid panel obtained and reviewed with patient, all WNL Risk Factors Assessment Male: Yes : Yes Do You Have Access To A Gun?: No Health Problems: No Mental Health Diagnoses: Yes Substance Use Disorders: No Previous Attempt: Yes Family History of Suicide: No Previous Psychiatric Hospitalization: Yes Hopelessness: Yes Smoker: No Protective Factors Assessment Yarsani Beliefs: Yes : No Responsible for Young Children: No Employed: No Stable Relationships: Yes Supportive Family: Yes Interval History Identifying Information MARLENE MCLEAN is a 28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 Chief Complaint "Yeah, yesterday started out kind of rough. I almost feel like I did a complete 180. Is that normal?" Review of Systems Notes Constitutional: denied Cardiovascular: denied Respiratory: denied Gastrointestinal: denied Neurological: denied Psychiatric: denies symptoms other than stated above Total of at least 10 systems reviewed, pertinent positives as above and in HPI. Sleep Information Total Hours of Sleep: 7.5 Sleep Comments: awake at 0115, checked the time and appeared to go right back to sleep. Meal Information Percent Meal Consumed - Breakfast: 100 Percent Meal Consumed - Lunch: 100 Percent Meal Consumed - Dinner: 100 Subjective Subjective Patient was seen & assessed and interval progress reviewed with nursing and social work. Staff reports the patient had some difficulty yesterday morning getting out of bed. He did appear to improve as the day went on and rated his mood a 7/10 and described his mood as "calm" on evening shift. Pt was seen today to assess progress since admission. Pt states his day started much better today. He states, "I wanted to withdraw a little bit, but as soon as they said breakfast was here I was able to get up." Pt inquires if it is "normal" that his mood change so drastically over the course of the day. We discussed behavioral activation, and ways in which our actions and decisions during the day can affect our mood. Pt states these ideas were discussed in group therapy today, and he was able to verbalize anticipated changes to his morning routine that may encourage him to make the decision to get out of bed and start his day. Pt reports, "I think waking up and thinking of the feeling of being in the shower will help, it's relaxing." Pt states he also is planning to get an alarm clock with a radio as "music can change my mood, that way I wake up to it first thing." Pt was encouraged to continue to brainstorm other things that may be beneficial in carrying a positive momentum throughout his day. Pt denies SI today, but remains concerned about his drastic change in mood yesterday. He denies other needs or concerns at this time. Physical Exam Psychiatric Orientation: alert, oriented x 3 and cooperative (and pleasant) Apperance: appropriately dressed, appropriately groomed and appeared stated age Eye Contact: good eye contact Motor Behavior: steady gait and station and no abnormal motor movements Speech: normal rate/rhythm/volume of speech Affect: + blunted affect (mildly brighter) Mood: + depressed mood ("I feel better today, but it's just weird") Thought Process: goal directed thought process, clear/coherent thought process and + thought blocking (much improved, mild delays in thought still present) Thought Content: reality based without delusions Suicidal Thoughts: denies suicidal thoughts and denies suicidal intent Homicidal Thoughts: denies homicidal thoughts Hallucinations: no auditory hallucinations and no visual hallucinations Cognition: attention grossly intact and language grossly intact Estimated Intelligence: + above average estimated intelligence Insight: + fair insight Judgement: + fair judgement Vital Signs (Past 24 Hours) Last Vital Signs Temp 36.7 C 10/30/18 06:00 Pulse 75 10/30/18 06:36 Resp 16 10/30/18 06:00 BP 112/74 10/30/18 06:36 Pulse Ox 99 10/24/18 17:05 Results & Data Laboratory Results Laboratory Results - last 24 hr 10/30/18 07:34 Fasting Glucose 80 Triglycerides 45 Cholesterol 137 LDL Cholesterol, Calc 76 VLDL Cholesterol, Calc 9 HDL Cholesterol 52 Cholesterol/HDL Ratio 3 Current Inpatient Medications Current Inpatient Medications: Current Inpatient Medications Acetaminophen (Tylenol) 650 mg PO Q4H PRN PRN Reason: Headache or Minor Fever Stop: 11/22/18 16:44 Al Hydrox/Mg Hydrox/Simethicone (Maalox) 30 ml PO Q4H PRN PRN Reason: GI Upset Stop: 11/22/18 16:44 Bismuth Subsalicylate (Kaopectate) 15 ml PO PRN PRN PRN Reason: Loose Stool Stop: 11/22/18 16:44 Hydroxyzine HCl (Vistaril) 25 mg PO Q4H PRN PRN Reason: Anxiety Stop: 11/22/18 16:44 Hydroxyzine HCl (Vistaril) 50 mg PO HSZ MAGDA Stop: 11/25/18 21:59 Last Admin: 10/29/18 21:17 Dose: 50 mg Documented by: Lorazepam (Ativan) 0.5 mg PO TID PRN PRN Reason: Anxiety Stop: 11/22/18 18:08 Lurasidone HCl (Latuda) 80 mg PO HS MAGDA Stop: 11/28/18 21:59 Last Admin: 10/29/18 21:16 Dose: 80 mg Documented by: Magnesium Hydroxide (Milk Of Magnesia) 30 ml PO DAILY PRN PRN Reason: Heartburn Stop: 11/22/18 16:44 Sertraline HCl (Zoloft) 150 mg PO QAM MAGDA Stop: 11/23/18 11:29 Last Admin: 10/30/18 08:57 Dose: 150 mg Documented by: Sodium Chloride ([place] Nasal) 1 - 2 sprays NA PRN PRN PRN Reason: Nasal Dryness/Congestion Stop: 11/22/18 16:44 Mental Health & Subst Abuse Tx Psychiatrist Name of Psychiatrist: Dr. Llanos Psychiatrist's Date of Appointment with Psychiatrist: 11/20/18 Time of Appointment with Psychiatrist: 1:00 p.m. Psychiatric Appointment Comment: [address] [facility], [address], [place] [address] Therapist Name of Therapist: Malcom Llanos Therapist's Date of Therapist Appointment: 11/04/18 Time of Therapist Appointment: 1:00 p.m. Therapy Appointment Comment: SAAD Yepez Insurance Plan Specialist Name of Insurance Plan Specialist: None Post Discharge Appointments Primary Care Physician Name Of Family Doctor: None Contact Information Discharge Discharge Address: [facility] [address], [place] [address] CPT Code CPT Code 52237 (1) Bipolar disorder current episode depressed Current episode severity: unspecified Qualified Code(s): F31.30 - Bipolar disorder, current episode depressed, mild or moderate severity, unspecified
[2018-10-30] MEDS: LURASIDONE HCL 40 MG TAB PO SCH (21:12)
[2018-10-31] MEDS: SERTRALINE HCL 100 MG TABLET PO SCH (09:13)
--- NOTE | 2018-10-31 09:33 | Psychiatric Progress Note ---
Date of Service October 31, 2018 Impression / Recommendations Impression 28-year-old patient with bipolar disorder NOS who presented for possibly his 4th psychiatric hospitalization. He gives a history of the onset of bipolar disorder approximately 5 or 6 years ago, with one manic episode while he was traveling in [place]. His depressive symptoms worsened when his outpatient psychiatrist decreased his Zoloft due to hypomania. Zoloft has since been titrated to 150mg, initially with rapid improvement in mood, but over the past 2 days mood has worsened precipitously, with hopelessness, worthlessness, thought blocking, cognitive distortions, and no desire to live. He is anergic and struggling to participate in groups and therapy - but with encouragement is willing to do so. Lurasidone was subsequently increased to 80mg daily. Fasting labs obtained and WNL. Will increase hydroxyzine at HS to 100mg, as he continues to report difficulty sleeping on the unit. Inpatient treatment is necessary due to the risk for suicide if discharged. (1) Suicidal thoughts: 10/24/18 -The patient reports frequent thoughts of suicide during episodes of depression. He has a history of a very serious suicide attempt that reportedly occurred about 5 years ago in which he cut his neck repeatedly with a sharp object and attempted to jump through a closed window (unsuccessfully). The patient's thoughts of suicide currently have included thoughts of, again, jumping through a window, or banging his head against a hard object. The patient indicates that these thoughts are not associated with a specific plan or intent. However, he clearly says that he wishes that he could simply "be " and wishes that he could "go to sleep and never wake up." 10/27 - Denies SI, but recognizing some regression in regard to isolative desires and lower mood today - which increases risk of SI representing - Continue admission to ensure consistency of mood and ability to utilize coping strategies and safety plan effectively 10/29 - Worsening mood and SI. Continue safety checks. 10/31 - Denies SI today, but is still not confident about his ability to contract for safety outside of the hospital at this time (2) Bipolar disorder current episode depressed: 10/24 -The patient tells us that his current episode of depression is "definitely the worst" depression that he is ever experienced. Although he reports that his suicidal thoughts consist primarily of passive thoughts of without active suicidal plan or intent, he does have a history of having made at least one very serious suicide attempt under similar circumstances. 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 Bipolar depression can be difficult to treat, in part because of the risk of inducing sabra. As noted above, the patient's outpatient psychiatrist reportedly had been tapering his antidepressant medication (sertraline) because the patient had been exhibiting some evidence of hypomania. However, it appears that the patient's hypomania rapidly switched to depression during the sertraline taper, and his dose of sertraline was increased back to 100 mg a day. The plan will be to increase his dose of sertraline to a dose of 150 mg a day. The outpatient psychiatrist advised had been to increase the dose of Latuda (lurasidone) from the current 60 mg a day to a dose of 80 mg a day. Because of the patient's report that he experiences excess sedation at 80 mg (daytime sedation of taken at bedtime (and because he reports that his feelings of jumpiness and restlessness) may worsen at 80 mg, we will hold off increasing lurasidone for the time being. Although the patient does not exhibit cogwheel rigidity on testing today, I will add Artane 5 mg daily because of the patient's report of symptoms consistent with akathisia. We are encouraging the patient to be active in the milieu, to participate as actively as he can in individual and group therapies, avoid retreating to his room, and seeing interactions, even if they are not consistent with his personal wishes, as part of the treatment for depression. Also, the patient expresses certain concerns about his family of origin, and he tells us that this is a frequent source of rumination. It may be useful, once the patient's mood has improved somewhat, to explore this further. Also, family interventions would be recommended, if possible. 10/25--tolerating med changes, consider titration of Latuda if reemergence of hypomania. 10/26--d/c Artane and if symptoms recur shift to pm. Vistaril 50 mg scheduled at bedtime as he seemed somewhat ambivalent about requesting prn. 10/27 - Continue current medication regimen; per order, Vistaril can be repeated x1 for nighttime awakening - Encourage participation in group programming, as he reports feeling more withdrawn today - Solidify aftercare appointment 10/28 - Continue current medication regimen; encourage journaling as a way to begin processing reportedly racing thoughts - Continue inpatient admission, as patient's condition is worsened over the past 2 days - Continue attempts to schedule appointment with his outpatient psychiatrist. 10/29 - Increase lurasidone to 80mg daily for bipolar depression, and give with dinner to ensure adequate absorption. - Continue sertraline 150mg daily. 10/30 - Continue medication regimen as above - Continue to encourage patient's participation in groups, encouraging 1:1 counseling as desired - Reports mood is more consistent today - Fasting glucose and lipid panel obtained and reviewed with patient, all WNL 10/31 - Continue current medication regimen - Encouraged patient to brainstorm "check-points" he could add to his day to ease his transition back to independent living outside of the hospital - Mood continues to be lower in the morning and improve thoroughout the day Risk Factors Assessment Male: Yes : Yes Do You Have Access To A Gun?: No Health Problems: No Mental Health Diagnoses: Yes Substance Use Disorders: No Previous Attempt: Yes Family History of Suicide: No Previous Psychiatric Hospitalization: Yes Hopelessness: Yes Smoker: No Protective Factors Assessment Jewish Beliefs: Yes : No Responsible for Young Children: No Employed: No Stable Relationships: Yes Supportive Family: Yes Interval History Identifying Information MARLENE MCLEAN is a 28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 Chief Complaint "This morning was still difficult, but I'd say about the same as yesterday." Review of Systems Notes Constitutional: reports some restlessness yesterday afternoon; improved sleep last evening Cardiovascular: denied Respiratory: denied Gastrointestinal: denied Neurological: denied Psychiatric: denies symptoms other than stated above Total of at least 10 systems reviewed, pertinent positives as above and in HPI. Sleep Information Total Hours of Sleep: 6.5 Sleep Comments: awake at 0115, checked the time and appeared to go right back to sleep. Meal Information Percent Meal Consumed - Breakfast: 100 Percent Meal Consumed - Lunch: 100 Percent Meal Consumed - Dinner: 100 Subjective Subjective Patient was seen & assessed and interval progress reviewed with treatment team. Staff reports the patient has been demonstrating some variability in mood throughout the day, generally appearing brighter and more engaged in the evenings. He rated his mood a 6/10 and "restless" last evening. Patient was seen today to assess progress since admission. He states this morning was "still difficult", but was able to get out of bed without too much difficulty after he was informed breakfast had arrived. He states, "I wonder if I should just get up after they get vitals" - wondering if part of the problem is him requiring a scheduled stimulus to get out of bed. Pt states he still experiences "more negative thoughts" in the morning, but has trouble describing these. One example he provides is, "like this morning, I was looking at my korean toast and thing about 'how am I supposed to eat this?' like would people be watching me eat it." Pt was asked if a lot of his anxiety and racing tho ughts deal with concern for the perception others have of him, his decisions, or his behavior - he did say yes. Pt states he is often able to redirect this thinking by "I tell myself it's all temporary." Pt was asked if he felt he would be able to apply the skills he has learned her to his daily life, and if he would feel confident independently being responsible for getting out of bed and finding motivation in his day. He states, "it will definitely be harder at home. I think about the pattern I was in before, and I'm nervous I'll fall back into it." He was able to develop some constructive "check-points" to aid the transition, for example requesting that his parents call in the morning to make sure he is out of bed, until he is more comfortable consistently managing this on his own. Pt was encouraged to think of other "check-points" that could be added to his day, and was given some examples. Pt denies SI today, but is still not sure he is confident in his ability to function independently at home. Physical Exam Psychiatric Orientation: alert, oriented x 3 and cooperative Apperance: appropriately dressed, appropriately groomed and appeared stated age Eye Contact: good eye contact Motor Behavior: steady gait and station and no abnormal motor movements Speech: normal rate/rhythm/volume of speech Affect: + flat affect Mood: + depressed mood ("this morning was still difficult" and "usually better in the afternoons") Thought Process: goal directed thought process and clear/coherent thought process Thought Content: reality based without delusions Suicidal Thoughts: denies suicidal thoughts and denies suicidal intent Homicidal Thoughts: denies homicidal thoughts Hallucinations: no auditory hallucinations and no visual hallucinations Cognition: attention grossly intact and language grossly intact Estimated Intelligence: + above average estimated intelligence Insight: + fair insight Judgement: + fair judgement Vital Signs (Past 24 Hours) Last Vital Signs Temp 36.5 C 10/31/18 06:00 Pulse 77 10/31/18 06:45 Resp 16 10/31/18 06:00 BP 110/73 10/31/18 06:45 Pulse Ox 99 10/24/18 17:05 Results & Data Current Inpatient Medications Current Inpatient Medications: Current Inpatient Medications Acetaminophen (Tylenol) 650 mg PO Q4H PRN PRN Reason: Headache or Minor Fever Stop: 11/22/18 16:44 Al Hydrox/Mg Hydrox/Simethicone (Maalox) 30 ml PO Q4H PRN PRN Reason: GI Upset Stop: 11/22/18 16:44 Bismuth Subsalicylate (Kaopectate) 15 ml PO PRN PRN PRN Reason: Loose Stool Stop: 11/22/18 16:44 Hydroxyzine HCl (Vistaril) 25 mg PO Q4H PRN PRN Reason: Anxiety Stop: 11/22/18 16:44 Hydroxyzine HCl (Vistaril) 100 mg PO HSZ MAGDA Stop: 11/29/18 21:59 Last Admin: 10/30/18 21:13 Dose: 100 mg Documented by: Lorazepam (Ativan) 0.5 mg PO TID PRN PRN Reason: Anxiety Stop: 11/22/18 18:08 Lurasidone HCl (Latuda) 80 mg PO HS MAGDA Stop: 11/28/18 21:59 Last Admin: 10/30/18 21:12 Dose: 80 mg Documented by: Magnesium Hydroxide (Milk Of Magnesia) 30 ml PO DAILY PRN PRN Reason: Heartburn Stop: 11/22/18 16:44 Sertraline HCl (Zoloft) 150 mg PO QAM MAGDA Stop: 11/23/18 11:29 Last Admin: 10/31/18 09:13 Dose: 150 mg Documented by: Sodium Chloride ([place] Nasal) 1 - 2 sprays NA PRN PRN PRN Reason: Nasal Dryness/Congestion Stop: 11/22/18 16:44 Mental Health & Subst Abuse Tx Psychiatrist Name of Psychiatrist: Dr. Llanos Psychiatrist's Date of Appointment with Psychiatrist: 11/20/18 Time of Appointment with Psychiatrist: 1:00 p.m. Psychiatric Appointment Comment: [address], [address], [place] [address] Therapist Name of Therapist: Malcom Llanos Therapist's Date of Therapist Appointment: 11/04/18 Time of Therapist Appointment: 1:00 p.m. Therapy Appointment Comment: SAAD Yepez Health Insurance Assessor Name of Health Insurance Assessor: None Post Discharge Appointments Primary Care Physician Name Of Family Doctor: None Contact Information Discharge Discharge Address: [address], [place] [address] CPT Code CPT Code 31918 (1) Bipolar disorder current episode depressed Current episode severity: unspecified Qualified Code(s): F31.30 - Bipolar disorder, current episode depressed, mild or moderate severity, unspecified
[2018-10-31] MEDS: LURASIDONE HCL 40 MG TAB PO SCH (21:50)
[2018-11-01] MEDS: SERTRALINE HCL 100 MG TABLET PO SCH (09:24)
--- NOTE | 2018-11-01 09:38 | Psychiatric Progress Note ---
Date of Service November 01, 2018 Impression / Recommendations Impression 28-year-old patient with bipolar disorder NOS who presented for possibly his 4th psychiatric hospitalization. He gives a history of the onset of bipolar disorder approximately 5 or 6 years ago, with one manic episode while he was traveling in [place]. His depressive symptoms worsened when his outpatient psychiatrist decreased his Zoloft due to hypomania. Zoloft has since been titrated to 150mg, lurasidone increased to 80mg daily, and hydroxyzine increased to 100 mg HS, and he is slowly improving. He is working on discharge plans and ways to maintain daily structure at home, as he indicates this has been a particular struggle. Inpatient treatment is necessary due to the risk for suicide if discharged. (1) Suicidal thoughts: 10/24/18 -The patient reports frequent thoughts of suicide during episodes of depression. He has a history of a very serious suicide attempt that reportedly occurred about 5 years ago in which he cut his neck repeatedly with a sharp ob ject and attempted to jump through a closed window (unsuccessfully). The patient's thoughts of suicide currently have included thoughts of, again, jumping through a window, or banging his head against a hard object. The patient indicates that these thoughts are not associated with a specific plan or intent. However, he clearly says that he wishes that he could simply "be " and wishes that he could "go to sleep and never wake up." 10/27 - Denies SI, but recognizing some regression in regard to isolative desires and lower mood today - which increases risk of SI representing - Continue admission to ensure consistency of mood and ability to utilize coping strategies and safety plan effectively 10/29 - Worsening mood and SI. Continue safety checks. 10/31 - Denies SI today, but is still not confident about his ability to contract for safety outside of the hospital at this time 11/01 -Working on his discharge safety plan. (2) Bipolar disorder current episode depressed: 10/24 -The patient tells us that his current episode of depression is "definitely the worst" depression that he is ever experienced. Although he reports that his suicidal thoughts consist primarily of passive thoughts of without active suicidal plan or intent, he does have a history of having made at least one very serious suicide attempt under similar circumstances. 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 Bipolar depression can be difficult to treat, in part because of the risk of inducing sabra. As noted above, the patient's outpatient psychiatrist reportedly had been tapering his antidepressant medication (sertraline) because the patient had been exhibiting some evidence of hypomania. However, it appears that the patient's hypomania rapidly switched to depression during the sertraline taper, and his dose of sertraline was increased back to 100 mg a day. The plan will be to increase his dose of sertraline to a dose of 150 mg a day. The outpatient psychiatrist advised had been to increase the dose of Latuda (lurasidone) from the current 60 mg a day to a dose of 80 mg a day. Because of the patient's report that he experiences excess sedation at 80 mg (daytime sedation of taken at bedtime (and because he reports that his feelings of jumpiness and restlessness) may worsen at 80 mg, we will hold off increasing lurasidone for the time being. Although the patient does not exhibit cogwheel rigidity on testing today, I will add Artane 5 mg daily because of the patient's report of symptoms consistent with akathisia. We are encouraging the patient to be active in the milieu, to participate as actively as he can in individual and group therapies, avoid retreating to his room, and seeing interactions, even if they are not consistent with his personal wishes, as part of the treatment for depression. Also, the patient expresses certain concerns about his family of origin, and he tells us that this is a frequent source of rumination. It may be useful, once the patient's mood has improved somewhat, to explore this further. Also, family interventions would be recommended, if possible. 10/25--tolerating med changes, consider titration of Latuda if reemergence of hypomania. 10/26--d/c Artane and if symptoms recur shift to pm. Vistaril 50 mg scheduled at bedtime as he seemed somewhat ambivalent about requesting prn. 10/27 - Continue current medication regimen; per order, Vistaril can be repeated x1 for nighttime awakening - Encourage participation in group programming, as he reports feeling more withdrawn today - Solidify aftercare appointment 10/28 - Continue current medication regimen; encourage journaling as a way to begin processing reportedly racing thoughts - Continue inpatient admission, as patient's condition is worsened over the past 2 days - Continue attempts to schedule appointment with his outpatient psychiatrist. 10/29 - Increase lurasidone to 80mg daily for bipolar depression, and give with dinner to ensure adequate absorption. - Continue sertraline 150mg daily. 10/30 - Continue medication regimen as above - Continue to encourage patient's participation in groups, encouraging 1:1 counseling as desired - Reports mood is more consistent today - Fasting glucose and lipid panel obtained and reviewed with patient, all WNL 10/31 - Continue current medication regimen - Encouraged patient to brainstorm "check-points" he could add to his day to ease his transition back to independent living outside of the hospital - Mood continues to be lower in the morning and improve throughout the day 11/01 -Slowly improving, continue current meds. -Work on plan to maintain daily structure at home, specifically in the morning when mood is at its lowest. 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 Chief Complaint "Getting better". Review of Systems Sleep Information Total Hours of Sleep: 7 Sleep Comments: awake at 0115, checked the time and appeared to go right back to sleep. Meal Information Percent Meal Consumed - Breakfast: 100 Percent Meal Consumed - Lunch: 100 Percent Meal Consumed - Dinner: 100 Subjective Subjective Patient was seen & assessed and interval progress reviewed with nursing and social work. Staff report he is going to groups and participating, and reporting improvement in mood. On my assessment, he reports mood is slowly improving, although still feels very low in the morning, with difficulty getting out of bed, showering and eating breakfast. He recognizes that doing these things helps his mood and wants to work on a plan to continue them at home. He has been more able to engage in activities here, for example working on a puzzle and reading a book his friend brought. He denies SI and is working on his safety plan, and hopeful he will be able to be discharged tomorrow. He is worried that he won't continue his daily structure at home and mood will worsen. He is also worried that he won't be able to perform academically at the same level in the future and may not be able to finish his Master's. He wants to meet with the University to figure out how to get a class removed from his transcript that is preventing him from getting into grad school. He asks multiple questions about his mood and medications. Physical Exam Psychiatric Orientation: alert, oriented x 3 and cooperative Apperance: appropriately dressed, appropriately groomed and appeared stated age Eye Contact: good eye contact Motor Behavior: steady gait and station and no abnormal motor movements Speech: normal rate/rhythm/volume of speech Affect is brighter, reactive, appropriate. Mood: + depressed mood (But improving.) Thought Process: linear/logical thought process Thought Content: reality based without delusions Suicidal Thoughts: denies suicidal thoughts Homicidal Thoughts: denies homicidal thoughts Hallucinations: no auditory hallucinations and no visual hallucinations Cognition: recent memory grossly intact, attention grossly intact and language grossly intact Estimated Intelligence: + above average estimated intelligence Insight: good insight Judgement: good judgement Vital Signs (Past 24 Hours) Last Vital Signs Temp 36.6 C 11/01/18 06:36 Pulse 66 11/01/18 06:36 Resp 16 11/01/18 06:36 BP 107/70 11/01/18 06:36 Pulse Ox 99 10/24/18 17:05 Results & Data Current Inpatient Medications Current Inpatient Medications: Current Inpatient Medications Acetaminophen (Tylenol) 650 mg PO Q4H PRN PRN Reason: Headache or Minor Fever Stop: 11/22/18 16:44 Al Hydrox/Mg Hydrox/Simethicone (Maalox) 30 ml PO Q4H PRN PRN Reason: GI Upset Stop: 11/22/18 16:44 Bismuth Subsalicylate (Kaopectate) 15 ml PO PRN PRN PRN Reason: Loose Stool Stop: 11/22/18 16:44 Hydroxyzine HCl (Vistaril) 25 mg PO Q4H PRN PRN Reason: Anxiety Stop: 11/22/18 16:44 Hydroxyzine HCl (Vistaril) 100 mg PO HSZ MAGDA Stop: 11/29/18 21:59 Last Admin: 10/31/18 21:50 Dose: 100 mg Documented by: Lorazepam (Ativan) 0.5 mg PO TID PRN PRN Reason: Anxiety Stop: 11/22/18 18:08 Lurasidone HCl (Latuda) 80 mg PO HS MAGDA Stop: 11/28/18 21:59 Last Admin: 10/31/18 21:50 Dose: 80 mg Documented by: Magnesium Hydroxide (Milk Of Magnesia) 30 ml PO DAILY PRN PRN Reason: Heartburn Stop: 11/22/18 16:44 Sertraline HCl (Zoloft) 150 mg PO QAM MAGDA Stop: 11/23/18 11:29 Last Admin: 11/01/18 09:24 Dose: 150 mg Documented by: Sodium Chloride ([place] Nasal) 1 - 2 sprays NA PRN PRN PRN Reason: Nasal Dryness/Congestion Stop: 11/22/18 16:44 Mental Health & Subst Abuse Tx Psychiatrist Name of Psychiatrist: Dr. Llanos Psychiatrist's Date of Appointment with Psychiatrist: 11/20/18 Time of Appointment with Psychiatrist: 1:00 p.m. Psychiatric Appointment Comment: [address] [facility], [address], [place] [address] Therapist Name of Therapist: Malcom Llanos Therapist's Date of Therapist Appointment: 11/04/18 Time of Therapist Appointment: 1:00 p.m. Therapy Appointment Comment: SAAD Yepez Manager Cost Name of Manager Cost: None Post Discharge Appointments Primary Care Physician Name Of Family Doctor: None Contact Information Discharge Discharge Address: [facility] [address], [place] [address] CPT Code CPT Code 81115 (1) Bipolar disorder current episode depressed Current episode severity: unspecified Qualified Code(s): F31.30 - Bipolar disorder, current episode depressed, mild or moderate severity, unspecified
[2018-11-01] MEDS: LURASIDONE HCL 40 MG TAB PO SCH (21:16)
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
[2018-11-02] MEDS: SERTRALINE HCL 100 MG TABLET PO SCH (08:47)
== END 2018-11-02 10:30 | disposition home or self-care (01) | DRG 885 ==
LOC: ED 13:51 → 3S 17:17